=== PATIENT | male | born 1950 | race Caucasian/White ===

== ENCOUNTER 2016-12-29 08:45 | Outpatient (CLI) | payer OTHER ==
[2016-12-29 13:14] LABS: BASOPHILS % (AUTO) 0.5 %; EOSINOPHILS # (AUTO) 0.3 10^3/uL (0.0-0.7); HGB - HEMOGLOBIN 14.1 g/dL (14.0-18.0); LYMPHOCYTES # (AUTO) 1.2 10^3/uL (1.5-3.5); MONOCYTES # (AUTO) 0.8 10^3/uL (0.0-1.0)
[2016-12-29 13:37] LABS: ALBUMIN/GLOBULIN RATIO 1.3 (1.0-2.2); BILIRUBIN,TOTAL 0.8 mg/dL (0.2-1.0); BUN - BLOOD UREA NITROGEN 20 mg/dL (6-20); CALCIUM 9.3 mg/dL (8.5-10.3); CARBON DIOXIDE - CO2 30 mmol/L (21-32); CHLORIDE 100 mmol/L (101-111); CHOL/HDL RATIO 5.9 (<5.0); CHOLESTEROL 178 mg/dL; CREATININE 0.9 mg/dL (0.6-1.2); GFR - MDRD 84 (>89); GLUCOSE 201 mg/dL (70-100); HDL CHOLESTEROL 30 mg/dL; LDL/HDL RATIO 3.9 (<3.6); POTASSIUM 3.6 mmol/L (3.5-5.0); SODIUM 139 mmol/L (135-145); TOTAL PROTEIN 7.4 g/dL (6.7-8.2); TRIGLYCERIDES 151 mg/dL; VLDL CHOLESTEROL 30 mg/dL
[2016-12-29 14:16] LABS: EOSINOPHILS % (AUTO) 3.2 %; HCT - HEMATOCRIT 40.1 % (42.0-52.0); LYMPHOCYTES % (AUTO) 13.1 %; MEAN CORPUSCULAR HEMOGLOBIN 29.1 pg (27.0-31.0); MEAN CORPUSCULAR HGB CONC 35.2 g/dL (32.0-36.0); MEAN CORPUSCULAR VOLUME 82.7 fL (80.0-94.0); MEAN PLATELET VOLUME 8.9 fL (7.4-11.4); MONOCYTES % (AUTO) 8.8 %; NEUTROPHILS # (AUTO) 6.8 10^3/uL (1.5-6.6); NEUTROPHILS % (AUTO) 74.4 %; RED BLOOD COUNT 4.85 10^6/uL (4.70-6.10); RED CELL DISTRIBUTION WIDTH 13.6 % (12.0-15.0); UNCORRECTED WHITE BLOOD COUNT 9.1 x10^3/uL; WHITE BLOOD COUNT 9.1 x10^3/uL (4.8-10.8)
[2016-12-29 18:48] LABS: HEMOGLOBIN A1C 0.75 g/dL
[2016-12-29 19:57] LABS: BILIRUBIN,URINE NEGATIVE (NEGATIVE)
[2016-12-29 20:19] LABS: UR CULTURE IF IND INDICATED; WBC,URINE >25 /HPF (0-3)
== END 2016-12-29 08:46 | disposition home or self-care (01) ==
LOC: LAB.WCP 08:45
PROVIDERS: ATTEND Family Medicine
DX: E11.9 Type 2 diabetes mellitus without complications (principal); I10 Essential (primary) hypertension; E78.9 Disorder of lipoprotein metabolism, unspecified; R30.0 Dysuria; Z12.5 Encounter for screening for malignant neoplasm of prostate
CPT/HCPCS: 36415; 80053; 80061; 81001; 82043; 83036; 84153; 85025; 87077; 87086

== ENCOUNTER 2020-07-31 15:13 | Outpatient (CLI) | payer MEDICARE | END 2020-07-31 15:14 | disposition home or self-care (01) | LOC: COV 15:13 | PROVIDERS: ATTEND Family Medicine | DX: R05 Cough (principal); R53.83 Other fatigue; R09.81 Nasal congestion; Z20.828 Contact with and (suspected) exposure to other viral communicable diseases ==

== ENCOUNTER 2020-08-02 10:50 | Emergency (ER) | payer MEDICARE ==
--- NOTE | 2020-08-02 11:03 | ED Physician Documentation ---
PD HPI URI - Stated complaint Stated Complaint: HEAD PX/FATIGUE - History obtained from History obtained from: Patient PD PAST MEDICAL HISTORY - Present Medications Home Medications: Ambulatory Orders Medication Instructions Recorded Confirmed Amlodipine Besylate [Norvasc] 10 mg PO DAILY 02/08/17 02/08/17 Aspirin [Aspirin EC] 81 mg PO DAILY 02/08/17 02/08/17 Metformin HCl 850 mg PO BID 02/08/17 02/08/17 Tamsulosin [Flomax] 0.4 mg PO DAILY 02/08/17 02/08/17 hydroCHLOROthiazide 25 mg PO DAILY 02/08/17 02/08/17 [Hydrochlorothiazide] lisinopriL [Lisinopril] 10 mg PO BID 02/08/17 02/08/17
--- NOTE | 2020-08-02 11:31 | ED Physician Documentation ---
PD HPI HEADACHE - Stated complaint Stated Complaint: HEAD PX/FATIGUE - Chief complaint Chief Complaint: General - History obtained from History obtained from: Patient - History of Present Illness Timing - onset: How many weeks ago (2-3) Timing - onset during: Rest, Light activity Timing - duration: Weeks Timing - details: Gradual onset, Waxing and waning Worst headache ever?: No: Worst headache ever? Location: Global Quality: Throbbing, Aching. No: [place] Associated symptoms: No: Fever, Stiff neck, Nausea, Vomiting Recently seen: Not recently seen (He had the headache and feeling slightly na useous and so was concerned about Covid infection and had been outpatient Covid test a few days ago. The result was negative. No URI symptoms per se. He did start taking his blood pressure though several days ago and is noticed it to be consistently well o) Review of Systems Constitutional: denies: Fever, Chills Eyes: denies: Loss of vision, Decreased vision Nose: denies: Rhinorrhea / runny nose, Congestion Throat: denies: Sore throat Respiratory: denies: Cough GI: reports: Nausea. denies: Vomiting, Diarrhea Skin: denies: Rash, Lesions Musculoskeletal: denies: Neck pain, Back pain Neurologic: reports: Headache. denies: Generalized weakness, Focal weakness, Numbness, Near syncope, Confused, Altered mental status, Head injury PD PAST MEDICAL HISTORY - Past Medical History Cardiovascular: Hypertension (Had run out of medicines several months ago in had not gotten to refill them. Is prior provider Dr. Abad left and he is reassigned as a new patient so his appointment is not until August. He did have a refill available of his amlodipine but not his lisinopril. It is available at the pharmacy ) - Present Medications Home Medications: Ambulatory Orders Medication Instructions Recorded Confirmed Amlodipine Besylate [Norvasc] 10 mg PO DAILY 02/08/17 08/02/20 Metformin HCl 850 mg PO BID 02/08/17 08/02/20 lisinopriL [Lisinopril] 10 mg PO BID 02/08/17 08/02/20 HYDROcod/ACETAM 5/325 [[place] 5/325] 1 ea PO Q6H PRN #10 tablet 08/02/20 Lisinopril [Zestril] 10 mg PO BID #60 tablet 08/02/20 - Allergies Allergies/Adverse Reactions: Allergies Allergy/AdvReac Type Severity Reaction Status Date / Time No Known Drug Allergies Allergy Verified 08/02/20 11:58 PD ED PE NORMAL - Vitals Vital signs reviewed: Yes - General General: Alert and oriented X 3, Well developed/nourished, Other (seems uncomfortable due to headache. ) - HEENT HEENT: PERRL, EOMI, Moist mucous membranes, Pharynx benign - Neck Neck: Supple, no meningeal sign, No adenopathy - Cardiac Cardiac: RRR, No murmur - Respiratory Respiratory: Clear bilaterally - Derm Derm: Normal color, Warm and dry - Extremities Extremities: No tenderness to palpate, No edema, No calf tenderness / cord - Neuro Neuro: Alert and oriented X 3, credit administrator 2-12 intact, No motor deficit, No sensory deficit, Normal speech, Other Eye Opening: Spontaneous Motor: Obeys Commands Verbal: Oriented GCS Score: 15 Results - Vitals Vitals: Vital Signs - 24 hr 08/02/20 08/02/20 08/02/20 10:55 11:14 12:55 Temperature 36.5 C Heart Rate 66 75 58 L Respiratory 16 12 12 Rate Blood Pressure 222/88 H 230/102 H 199/89 H O2 Saturation 96 98 97 08/02/20 13:30 Temperature 36.2 C L Heart Rate 63 Respiratory 18 Rate Blood Pressure 189/84 H O2 Saturation 98 Oxygen O2 Source Room air - EKG (time done) 11:43 Rate: Rate (enter#) (63) Rhythm: NSR [place]: Normal Intervals: Normal MD QRS: Normal Ischemia: Normal ST segments. No: ST elevation c/w ischemia, ST depression Compare to prior EKG: Old EKG unavailable - Labs Labs: Laboratory Tests 08/02/20 08/02/20 11:40 11:40 WBC 8.2 RBC 5.64 Hgb 16.0 Hct 47.5 MCV 84.2 MCH 28.4 MCHC 33.7 RDW 12.6 Plt Count 216 MPV 10.3 Neut # (Auto) 6.5 Lymph # (Auto) 0.9 L [place] # (Auto) 0.6 Eos # (Auto) 0.1 Baso # (Auto) 0.1 Absolute Nucleated RBC 0.00 Nucleated RBC % 0.0 Sodium 138 Potassium 3.8 Chloride 101 Carbon Dioxide 26 Anion Gap 11.0 BUN 19 Creatinine 0.9 Estimated GFR (MDRD) 84 L Glucose 278 H Calcium 9.6 Magnesium 2.2 - Rads (name of study) head CT Radiology: Prelim report reviewed (normal. no edema.), See rad report PD MEDICAL DECISION MAKING - ED course Complexity details: re-evaluated patient (headache is improved with meds, and BP is lessening with PO meds, down to 189 at discharge. Normal neuro still. ), considered differential (Seems likely is having hypertensive symptoms with the headache and some mild nausea. We can check head CT to ensure no posterior leukoencephalopathy nor signs of edema or swelling. Can check EKG and creatinine to ensure no other heart or kidney endorgan dysfunction from the sustained hypertension.), d/w patient Departure - Departure Disposition: Home, Self Care Clinical Impression: Hypertension Qualifiers: Hypertension type: unspecified Qualified Code(s): I10 - Essential (primary) hypertension Headache Qualifiers: Headache type: unspecified Headache chronicity pattern: acute headache Intractability: not intractable Qualified Code(s): R51.9 - Headache, unspecified Condition: Stable Record reviewed to determine appropriate education?: Yes Instructions: ED Cephalgia Unspecified, ED Hypertension Conf Out Of Control Follow-Up: Carissa Salazar DO [Primary Care Provider] - Prescriptions: HYDROcod/ACETAM 5/325 [[place] 5/325] 1 ea PO Q6H PRN #10 tablet PRN Reason: Pain Lisinopril [Zestril] 10 mg PO BID #60 tablet Comments: There is no signs of acute organ injury of the brain heart or kidneys based on your testing today. The blood pressure was elevated and has been so by your measurements at home. Therefore it would be good for you to resume your prior blood pressure medicines, as you intend to do. You have a amlodipine at the pharmacy. I wrote for the lisinopril. You can add Tylenol or hydrocodone pain medicine if needed for headaches which may still persist for another day or 2 but should taper down. Stay well- hydrated and low-salt diet. Follow-up with your primary care as planned. I believe the headache is from the high blood pressure and should improve as your blood pressures more controlled. Recheck if persisting headache despite better blood pressure or if other symptoms develop. Discharge Date/Time: 08/02/20 13:46
[2020-08-02] MEDS ORDERED: KETOROLAC 30 MG/ML VIAL IVP STA (11:36)
[2020-08-02] MEDS ORDERED: ACETAMINOPHEN 325 MG TABLET PO STA (11:36)
[2020-08-02] MEDS ORDERED: lisinopriL 5 MG TABLET PO STA (11:37)
[2020-08-02 12:13] LABS: BASOPHILS # (AUTO) 0.1 10^3/uL (0.0-0.1); BASOPHILS % (AUTO) 0.6 %; EOSINOPHILS # (AUTO) 0.1 10^3/uL (0.0-0.7); EOSINOPHILS % (AUTO) 1.6 %; LYMPHOCYTES # (AUTO) 0.9 10^3/uL (1.5-3.5); LYMPHOCYTES % (AUTO) 10.7 %; MEAN CORPUSCULAR HEMOGLOBIN 28.4 pg (27.0-31.0); MEAN CORPUSCULAR HGB CONC 33.7 g/dL (32.0-36.0); MEAN CORPUSCULAR VOLUME 84.2 fL (80.0-94.0); MEAN PLATELET VOLUME 10.3 fL (7.4-11.4); MONOCYTES # (AUTO) 0.6 10^3/uL (0.0-1.0); MONOCYTES % (AUTO) 7.6 %; NEUTROPHILS # (AUTO) 6.5 10^3/uL (1.5-6.6); PLT - PLATELET COUNT 216 10^3/uL (130-450); RED BLOOD COUNT 5.64 10^6/uL (4.70-6.10); RED CELL DISTRIBUTION WIDTH 12.6 % (12.0-15.0); WHITE BLOOD COUNT 8.2 x10^3/uL (4.8-10.8)
[2020-08-02 12:25] LABS: CALCIUM 9.6 mg/dL (8.5-10.3); CREATININE 0.9 mg/dL (0.6-1.2); MAGNESIUM 2.2 mg/dL (1.7-2.8)
--- NOTE | 2020-08-02 12:39 | CT Report ---
PROCEDURE: HEAD WO INDICATIONS: Headache and HTN for 2-3 weeks TECHNIQUE: Noncontrast 4.5 mm thick angled axial sections acquired from the foramen magnum to the vertex. For r adiation dose reduction, the following was used: automated exposure control, adjustment of mA and/or kV according to patient size. COMPARISON: None. FINDINGS: Image quality: Excellent. CSF spaces: Basal cisterns are patent. No extra-axial fluid collections. Ventricles are normal in size and shape. Brain: No midline shift. No intracranial masses or hemorrhage. Gauthier-white matter interface is norm al. Skull and face: Calvarium and visualized facial bones are intact, without suspicious lesions. Sinuses: Visualized sinuses and mastoids are clear. IMPRESSION: No acute intracranial finding. Reviewed by: Brayden Short MD on 08/02/2020 11:38 AM [facility] Approved by: Brayden Short MD on 08/02/2020 11:38 AM [facility] Station ID: [id number]
[2020-08-02 13:46] VITALS: BP 189/84
== END 2020-08-02 13:46 | disposition home or self-care (01) ==
LOC: ED 10:50
DX: I10 Essential (primary) hypertension (principal); T46.4X6A Underdosing of angiotensin-converting-enzyme inhibitors, initial encounter; Z91.138 Patient's unintentional underdosing of medication regimen for other reason; R51.9 Headache, unspecified; R11.0 Nausea
CPT/HCPCS: 36415; 70450; 80048; 83735; 85025; 93005; 96374; 99284; A9270

== ENCOUNTER 2020-08-05 10:54 | Outpatient (CLI) | payer MEDICARE ==
[2020-08-05 18:14] LABS: BASOPHILS # (AUTO) 0.1 10^3/uL (0.0-0.1); BASOPHILS % (AUTO) 0.6 %; EOSINOPHILS # (AUTO) 0.3 10^3/uL (0.0-0.7); EOSINOPHILS % (AUTO) 2.5 %; HGB - HEMOGLOBIN 16.3 g/dL (14.0-18.0); LYMPHOCYTES % (AUTO) 9.4 %; MEAN CORPUSCULAR HEMOGLOBIN 29.4 pg (27.0-31.0); MEAN CORPUSCULAR HGB CONC 34.2 g/dL (32.0-36.0); MEAN CORPUSCULAR VOLUME 85.8 fL (80.0-94.0); MEAN PLATELET VOLUME 10.7 fL (7.4-11.4); MONOCYTES # (AUTO) 0.8 10^3/uL (0.0-1.0); MONOCYTES % (AUTO) 7.5 %; NEUTROPHILS # (AUTO) 8.5 10^3/uL (1.5-6.6); NEUTROPHILS % (AUTO) 79.7 %; PLT - PLATELET COUNT 235 10^3/uL (130-450); RED BLOOD COUNT 5.55 10^6/uL (4.70-6.10); RED CELL DISTRIBUTION WIDTH 12.5 % (12.0-15.0); WHITE BLOOD COUNT 10.6 x10^3/uL (4.8-10.8)
[2020-08-05 19:04] LABS: ALBUMIN 4.5 g/dL (3.2-5.5); ALBUMIN/GLOBULIN RATIO 1.3 (1.0-2.2); ALKALINE PHOSPHATASE 62 IU/L (42-121); ALT ALANINE AMINOTRANSFERASE 22 IU/L (10-60); AST ASPARTATE AMINOTRANSFERASE 16 IU/L (10-42); BILIRUBIN,TOTAL 0.8 mg/dL (0.2-1.0); BUN - BLOOD UREA NITROGEN 19 mg/dL (6-20); CALCIUM 9.6 mg/dL (8.5-10.3); CARBON DIOXIDE - CO2 26 mmol/L (21-32); CHLORIDE 100 mmol/L (101-111); CHOL/HDL RATIO 7.1 (<5.0); CHOLESTEROL 198 mg/dL; CREATININE 0.9 mg/dL (0.6-1.2); GLUCOSE 231 mg/dL (70-100); HDL CHOLESTEROL 28 mg/dL; LDL CHOLESTEROL,CALCULATED 129 mg/dL; LDL/HDL RATIO 4.6 (<3.6); SODIUM 136 mmol/L (135-145); VLDL CHOLESTEROL 41 mg/dL
[2020-08-05 19:18] LABS: CREATININE,URINE 91.3 mg/dL; MICROALBUM/CREATININE RATIO,UR 108.4 ug/mg (<30.0); MICROALBUMIN,URINE 9.9 mg/dL (0-300.0)
[2020-08-05 22:30] LABS: HEMOGLOBIN A1c% 7.4 % (4.27-6.07)
== END 2020-08-05 10:55 | disposition home or self-care (01) ==
LOC: LAB.N 10:54
PROVIDERS: ATTEND Family Medicine
DX: R74.8 Abnormal levels of other serum enzymes (principal); E11.9 Type 2 diabetes mellitus without complications; N40.1 Benign prostatic hyperplasia with lower urinary tract symptoms; N13.8 Other obstructive and reflux uropathy
CPT/HCPCS: 36415; 80053; 80061; 82043; 82570; 83036; 83721; 84153; 85025

== ENCOUNTER 2020-09-02 16:31 | Outpatient (CLI) | payer MEDICARE ==
[2020-09-02 18:42] LABS: CALCIUM 9.5 mg/dL (8.5-10.3); CREATININE 0.8 mg/dL (0.6-1.2)
== END 2020-09-02 23:59 ==
LOC: LAB.WCP 16:31
PROVIDERS: ATTEND Family Medicine
DX: I10 Essential (primary) hypertension (principal)
CPT/HCPCS: 36415; 80048

== ENCOUNTER 2020-10-13 19:35 | Inpatient (IN) | payer MEDICARE ==
[2020-10-13 19:51] LABS: BASOPHILS # (AUTO) 0.1 10^3/uL (0.0-0.1); BASOPHILS % (AUTO) 0.7 %; EOSINOPHILS # (AUTO) 0.2 10^3/uL (0.0-0.7); EOSINOPHILS % (AUTO) 2.6 %; HCT - HEMATOCRIT 43.6 % (42.0-52.0); HGB - HEMOGLOBIN 15.4 g/dL (14.0-18.0); LYMPHOCYTES # (AUTO) 1.3 10^3/uL (1.5-3.5); MEAN CORPUSCULAR HEMOGLOBIN 28.7 pg (27.0-31.0); MEAN CORPUSCULAR HGB CONC 35.3 g/dL (32.0-36.0); MEAN CORPUSCULAR VOLUME 81.2 fL (80.0-94.0); MEAN PLATELET VOLUME 10.5 fL (7.4-11.4); MONOCYTES # (AUTO) 0.8 10^3/uL (0.0-1.0); MONOCYTES % (AUTO) 8.6 %; NEUTROPHILS # (AUTO) 6.3 10^3/uL (1.5-6.6); NEUTROPHILS % (AUTO) 72.5 %; PLT - PLATELET COUNT 242 10^3/uL (130-450); RED BLOOD COUNT 5.37 10^6/uL (4.70-6.10); RED CELL DISTRIBUTION WIDTH 13.1 % (12.0-15.0); WHITE BLOOD COUNT 8.7 x10^3/uL (4.8-10.8)
--- NOTE | 2020-10-13 19:58 | ED Physician Documentation ---
PD HPI FOCAL NEURO - Stated complaint Stated Complaint: SLURRED SPEECH - Chief complaint Chief Complaint: Neuro - History obtained from History obtained from: Patient - History of Present Illness Timing - onset: Today Timing - duration: Hours (4.5) Timing - details: Gradual onset Severity of deficit: Mild Weakness: Arm, Leg, Right, Left Numbness: No: Face, Arm, Hand, Leg, Foot, Right, Left Associated symptoms: No: Headache, Nausea / vomiting, Seizure, Syncope, Fall, Head injury, Chest pain, Neck pain, Back pain, Fever Baseline status: positive: A&OX3, ambulatory, indep - Additional information Additional information: Patient is a 70-year-old male who states that he ate dinner around 330 tonight. He states he started drinking around that time as well. Went to watch a movie. When he was done with the movie he noticed that his legs felt heavy and he felt like he was having a hard time walking. He did not notice any localizing signs. He states his speech feels slurred as well. Has a history of hypertension and diabetes. States that he is on Metformin but does not take insulin. No history of stroke in the past. No recent trauma or surgery. He is not on blood thinne rs. Review of Systems Ten Systems: 10 systems reviewed and negative Constitutional: denies: Fever, Chills Eyes: denies: Decreased vision, Photophobia Ears: denies: Ear pain Nose: denies: Rhinorrhea / runny nose, Congestion Throat: denies: Sore throat Cardiac: denies: Chest pain / pressure Respiratory: denies: Dyspnea, Cough, Wheezing GI: denies: Abdominal Pain, Nausea, Vomiting, Diarrhea Skin: denies: Rash Musculoskeletal: denies: Neck pain, Back pain Neurologic: reports: Generalized weakness. denies: Focal weakness, Numbness, Syncope, Seizure, Confused, Altered mental status, Headache, Head injury, LOC PD PAST MEDICAL HISTORY - Past Medical History Cardiovascular: Hypertension (Had run out of medicines several months ago in had not gotten to refill them. Is prior provider Dr. Abad left and he is reass igned as a new patient so his appointment is not until August. He did have a refill available of his amlodipine but not his lisinopril. It is available at the pharmacy ) Neuro: Headaches Endocrine/Autoimmune: Type 2 diabetes - Past Surgical History Past Surgical History: Yes Derm: Skin cancer surgery - Present Medications Home Medications: Ambulatory Orders Medication Instructions Recorded Confirmed Amlodipine Besylate [Norvasc] 10 mg PO DAILY 02/08/17 08/02/20 Metformin HCl 850 mg PO BID 02/08/17 08/02/20 lisinopriL [Lisinopril] 10 mg PO BID 02/08/17 08/02/20 - Allergies Allergies/Adverse Reactions: Allergies Allergy/AdvReac Type Severity Reaction Status Date / Time No Known Drug Allergies Allergy Verified 10/13/20 19:47 - Social History Does the pt smoke?: No Smoking Status: Never smoker Does the pt drink ETOH?: No Does the pt have substance abuse?: No - Immunizations Immunizations are current?: No - POLST Patient has POLST: No PD ED PE NORMAL - Vitals Vital signs reviewed: Yes - General General: Alert and oriented X 3, No acute distress, Well developed/nourished - HEENT HEENT: PERRL, EOMI, Moist mucous membranes - Neck Neck: Supple, no meningeal sign - Cardiac Cardiac: RRR, No murmur, Strong equal pulses - Respiratory Respiratory: No respiratory distress, Clear bilaterally - Abdomen Abdomen: Soft, Non tender, Non distended - Derm Derm: Warm and dry, No rash - Extremities Extremities: No edema, No calf tenderness / cord - Neuro Neuro: Alert and oriented X 3, data analyst report writer 2-12 intact, No motor deficit, No sensory deficit, Normal speech Eye Opening: Spontaneous Motor: Obeys Commands Verbal: Oriented GCS Score: 15 - Psych Psych: Normal mood, Normal affect NIHSS - Time Time: 19:50 - Level of Consciousness Level of consciousness: (0) Alert, Keenly responsive LOC Questions: (0) Answers both Q's correct LOC Commands: (0) Performs both correctly - Gaze Best Gaze: (0) Normal - Visual Visual: (0) No loss - Facial Palsy Facial Palsy: (0) Normal, symmetrical movement - Motor Arms (both separate) Motor Arm (right): (0) No drift Motor Arm (left): (0) No drift - Motor Legs (both separate) Motor Leg (right): (0) No drift Motor Leg (left): (0) No drift - Limb Ataxia Limb Ataxia: (0) Absent - Sensory Sensory: (0) Normal - Best Language Best Language: (0) No aphasia - Dysarthria Dysarthria: (0) Normal - Extinction and Inattention (formally neg Extinction and inattention: (0) No abnormality - Total Score/Results Total Score/Result: 0 Results - Vitals Vitals: Vital Signs - 24 hr 10/13/20 10/13/20 10/13/20 19:39 20:12 20:42 Temperature 37.1 C 37.1 C 37.1 C Heart Rate 86 69 68 Respiratory 22 16 15 Rate Blood Pressure 204/79 H 150/68 H 150/68 H O2 Saturation 100 98 99 Oxygen O2 Source Room air - Labs Labs: Laboratory Tests 10/13/20 10/13/20 10/13/20 19:46 19:46 19:46 WBC 8.7 RBC 5.37 Hgb 15.4 Hct 43.6 MCV 81.2 MCH 28.7 MCHC 35.3 RDW 13.1 Plt Count 242 MPV 10.5 Neut # (Auto) 6.3 Lymph # (Auto) 1.3 L [place] # (Auto) 0.8 Eos # (Auto) 0.2 Baso # (Auto) 0.1 Absolute Nucleated RBC 0.00 Nucleated RBC % 0.0 PT INR APTT Sodium 138 Potassium 3.4 L Chloride 98 L Carbon Dioxide 25 Anion Gap 15.0 H BUN 14 Creatinine 0.9 Estimated GFR (MDRD) 83 L Glucose 308 H POC Whole Bld Glucose Estimat Average Glucose Hemoglobin A1c % Calcium 9.8 Total Bilirubin 0.8 AST 17 ALT 23 Alkaline Phosphatase 66 Total Protein 8.0 Albumin 4.6 Globulin 3.4 Albumin/Globulin Ratio 1.4 Lipase 47 TSH 2.85 Salicylates < 6.0 Acetaminophen < 10 L Ethyl Alcohol 43.4 10/13/20 10/13/20 10/13/20 19:46 19:46 19:50 WBC RBC Hgb Hct MCV MCH MCHC RDW Plt Count MPV Neut # (Auto) Lymph # (Auto) [place] # (Auto) Eos # (Auto) Baso # (Auto) Absolute Nucleated RBC Nucleated RBC % PT 12.1 INR 1.1 APTT 24.7 L Sodium Potassium Chloride Carbon Dioxide Anion Gap BUN Creatinine Estimated GFR (MDRD) Glucose POC Whole Bld Glucose 308 H Estimat Average Glucose 186 H Hemoglobin A1c % 8.1 H Calcium Total Bilirubin AST ALT Alkaline Phosphatase Total Protein Albumin Globulin Albumin/Globulin Ratio Lipase TSH Salicylates Acetaminophen Ethyl Alcohol PD MEDICAL DECISION MAKING - ED course Complexity details: reviewed results, re-evaluated patient (normal speech upon repeat evaluation. minimal L arm and leg weakness compared to R), considered differential, d/w patient, d/w construction consultant ED course: Slurred speech resolved upon arrival to the emergency department. Mostly has generalized weakness, but perhaps slightly more weakness on the left arm and left leg. Patient is significantly hypertensive. Last known normal was not with the 4-1/2 hours upon arrival to the emergency department. Symptoms are also improving. Therefore not a TPA candidate. Given labetalol for blood pressure. We will place the patient in observation for further strokelike symptom evaluation. Discussed the case with Dr. Zaidi, hospitalist who accepts No acute findings on head CT or CT angiogram of the head and neck. CT head IMPRESSION: No acute intracranial abnormality. CTA head IMPRESSION: No large vessel occlusion. No critical stenosis seen. CTA neck IMPRESSION: No large vessel occlusion. No dissection. Less than 50% stenosis in the bila teral ICA. Emphysematous change at the lung apices. - TPA CVA checklist Inclusion crititeria: positive: CT no bleed. negative: Sig neuro deficit, Onset know < 4.5 hr Relative contraindications: positive: Too mild Departure - Departure Disposition: ED Place in Observation Clinical Impression: Stroke-like symptoms Hypertension Qualifiers: Hypertension type: unspecified Qualified Code(s): I10 - Essential (primary) hypertension Condition: Stable
[2020-10-13 20:02] LABS: INR 1.1 (0.8-1.2); PT - PROTHROMBIN TIME 12.1 secs (9.9-12.6)
[2020-10-13 20:09] LABS: ACETAMINOPHEN < 10 ug/mL (10-30); ALBUMIN 4.6 g/dL (3.2-5.5); ALBUMIN/GLOBULIN RATIO 1.4 (1.0-2.2); ALKALINE PHOSPHATASE 66 IU/L (42-121); ALT ALANINE AMINOTRANSFERASE 23 IU/L (10-60); AST ASPARTATE AMINOTRANSFERASE 17 IU/L (10-42); BILIRUBIN,TOTAL 0.8 mg/dL (0.2-1.0); BUN - BLOOD UREA NITROGEN 14 mg/dL (6-20); CALCIUM 9.8 mg/dL (8.5-10.3); CARBON DIOXIDE - CO2 25 mmol/L (21-32); CHLORIDE 98 mmol/L (101-111); CREATININE 0.9 mg/dL (0.6-1.2); ETOH - ETHANOL 43.4 mg/dL; GFR - MDRD 83 (>89); GLUCOSE 308 mg/dL (70-100); LIPASE 47 U/L (22-51); POTASSIUM 3.4 mmol/L (3.5-5.0); SALICYLATE < 6.0 mg/dL; SODIUM 138 mmol/L (135-145)
[2020-10-13 20:10] LABS: PARTIAL THROMBOPLASTIN TIME 24.7 secs (24.9-33.3)
--- NOTE | 2020-10-13 20:26 | CT Report ---
PROCEDURE: Head W/O Stroke Protocol INDICATIONS: slurred speech, generalized weakness. TECHNIQUE: Noncontrast 4.5 mm thick angled axial sections acquired from the foramen magnum to the vertex, with c oronal reformats. For radiation dose reduction, the following was used: automated exposure control, adjustment of mA and/or kV according to patient size. COMPARISON: FINDINGS: Image quality: Excellent. CSF spaces: Basal cisterns are patent. No extra-axial fluid collections. Ventricles are normal in size and shape. Brain: No midline shift. No intracranial masses or hemorrhage. No large area of hypodensity in a va scular diffusion to suggest infarction. Periventricular hypodensity consistent with chronic microvasc ular ischemic disease. Skull and face: Calvarium and visualized facial bones are intact, without suspicious lesions. Sinuses: Visualized sinuses and mastoids are clear. IMPRESSION: No acute intracranial abnormality. This study fulfills neurological imaging criteria for inclusion or exclusion of acute stroke therapie s based on available published neurological imaging guidelines. Results were communicated to Dr. Markham at 10/13/2020 8:24 PM PST. Reviewed by: Zen Lawrence MD on 10/13/2020 8:25 PM PST Approved by: Zen Lawrence MD on 10/13/2020 8:25 PM PST Station ID: [id number]
--- NOTE | 2020-10-13 20:31 | CT Report ---
PROCEDURE: ANGIO HEAD W/WO INDICATIONS: slurred speech CONTRAST: IV CONTRAST: Optiray 320 ml: 100 PO CONTRAST: *NO PO CONTRAST TECHNIQUE: Precontrast 4.5 mm thick angled axial sections acquired from the foramen magnum to the vertex. Afte r the administration of intravenous contrast, 1 mm thick sections acquired through the [place] of [place] is. Postcontrast 4.5 mm thick sections then re-acquired from the foramen magnum to the vertex. 3-di mensional naythuh-cexlylatl-riymgadxhi (MIP) and/or volume rendering reformats were acquired of the c entral intracranial vasculature. For radiation dose reduction, the following was used: automated ex posure control, adjustment of mA and/or kV according to patient size. COMPARISON: Same day noncontrast head CT, 08/02/2020. FINDINGS: Image quality: Excellent. Anterior circulation: Intracranial internal carotid arteries are normal in size and flow. The flow within the paired anterior cerebral arteries is normal and symmetric. The flow within the middle cer ebral arteries is normal and symmetric. The anterior communicating artery is seen. No aneurysms are seen. Posterior circulation: Visualized portions of the vertebral arteries demonstrate normal caliber, and join to form a normal appearing basilar artery. Flow within the posterior cerebral arteries is norm al and symmetric. No aneurysms are seen. CSF spaces: Ventricles are normal in size and shape. Basal cisterns are patent. No extra-axial flu id collections. Brain: No midline shift. No intracranial bleeds or masses. Gauthier-white matter interface appears int act. Skull and face: Calvarium and facial bones appear intact, without suspicious lesions. Sinuses: Visualized sinuses and mastoids are clear. IMPRESSION: No large vessel occlusion. No critical stenosis seen. Results were communicated to Dr. Mauricio at 10/13/2020 8:29 PM PST. Reviewed by: Zen Lawrence MD on 10/13/2020 8:30 PM PST Approved by: Zen Lawrence MD on 10/13/2020 8:30 PM PST Station ID: [id number]
--- NOTE | 2020-10-13 20:35 | CT Report ---
PROCEDURE: ANGIO NECK W INDICATIONS: slurred speech CONTRAST: IV CONTRAST: Optiray 320 ml: 100 PO CONTRAST: *NO PO CONTRAST TECHNIQUE: After the administration of intravenous contrast, 1.5 mm axial sections acquired from the aortic arch to the [place] of [place]. Coronal 3-D maximum intensity projection (MIP) and/or volume rendering ref ormats were then performed. For radiation dose reduction, the following was used: automated exposur e control, adjustment of mA and/or kV according to patient size. COMPARISON: Same day CTA head. FINDINGS: Image quality: Excellent. Carotid system: The great vessels demonstrate a conventional anatomy as they arise from the aortic a rch. The origins of the common carotid arteries appear patent. The common carotid arteries demonstr ate normal calibers and courses. The bifurcation regions appear normal bilaterally. The internal ca rotid arteries demonstrate normal caliber and course. Less than 50% stenosis in the bilateral ICA. No calcified plaque at the carotid bulbs. Posterior circulation: The origins of the vertebral arteries appear patent. The more superior porti ons of the vertebral arteries demonstrate normal course and caliber. They join to form a normal appe aring basilar artery. Soft tissues: Visualized neck soft tissues demonstrate no suspicious abnormalities. Emphysematous c hange. The thyroid gland is normal in size. Bones: No suspicious bony lesions. Moderate degenerative change in the cervical spine. Visualized ce rvical spine appears normally aligned. IMPRESSION: No large vessel occlusion. No dissection. Less than 50% stenosis in the bilateral ICA. Emphysematous change at the lung apices. The estimate of stenosis included in the report of the imaging study was calculated using the NASCET method Reviewed by: Zen Lawrence MD on 10/13/2020 8:34 PM PST Approved by: Zen Lawrence MD on 10/13/2020 8:34 PM PST Station ID: [id number]
[2020-10-13] MEDS ORDERED: LABETALOL 20 MG/4 ML SYRINGE IVP STA (20:36)
[2020-10-13] MEDS ORDERED: IOVERSOL 320 100 ML VIAL IVP ONE ×2 (20:37→20:48)
[2020-10-13] MEDS ORDERED: ACETAMINOPHEN 325 MG TABLET PO PRN (20:45)
[2020-10-13] MEDS ORDERED: SODIUM CHLORIDE FLUSH 0.9% 10 ML SYRINGE IVP PRN (20:45)
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
[2020-10-13 21:08] LABS: ESTIMATED AVERAGE GLUCOSE 186 mg/dL (70-100); HEMOGLOBIN A1c% 8.1 % (4.27-6.07)
[2020-10-13 21:10] LABS: MUDS CUTOFF CONCENTRATIONS CUTOFF CONC BELOW:
[2020-10-13 21:19] LABS: BILIRUBIN,URINE NEGATIVE (NEGATIVE); GLUCOSE, URINE (UA) 500 mg/dL (NEGATIVE); KETONES,URINE (UA) 15 mg/dL (NEGATIVE); LEUKOCYTE ESTERASE, URINE NEGATIVE (NEGATIVE); NITRITE,URINE NEGATIVE (NEGATIVE); OCCULT BLOOD,URINE NEGATIVE (NEGATIVE); PH,URINE 5.5 PH (5.0-7.5); PROTEIN,URINE NEGATIVE (NEGATIVE); UROBILINOGEN,URINE 1 (NORMAL) E.U./dL (NORMAL)
[2020-10-13 21:20] LABS: CLARITY,URINE CLEAR (CLEAR)
[2020-10-13] MEDS ORDERED: ASPIRIN CHEW 81 MG TABLET PO STA (21:22)
[2020-10-13 21:23] LABS: AMPHETAMINE SCREEN,URINE NEGATIVE (NEGATIVE); BARBITURATE SCREEN,UR NEGATIVE (NEGATIVE); BENZODIAZEPINES SCREEN, URINE NEGATIVE (NEGATIVE); COCAINE SCREEN URINE NEGATIVE (NEGATIVE); METHADONE SCREEN, URINE NEGATIVE (NEGATIVE); METHAMPHETAMINES SCREEN, URINE NEGATIVE (NEGATIVE); OPIATE SCREEN, URINE NEGATIVE (NEGATIVE); OXYCODONE SCREEN, URINE NEGATIVE (NEGATIVE); PROPOXYPHENE SCREEN, URINE NEGATIVE (NEGATIVE); THC CANNABINOID SCREEN, URINE NEGATIVE (NEGATIVE); TRICYCLIC ANTIDEPRESSANT,URINE NEGATIVE (NEGATIVE)
[2020-10-13] MEDS ORDERED: ASPIRIN 325 MG TABLET PO STA (22:00)
[2020-10-13] MEDS ORDERED: hydrALAZINE INJ 20 MG/ML VIAL IVP PRN (22:01)
[2020-10-13 22:11] LABS: B. PARAPERTUSSIS- RESP PCR PAN NOT DETECTED; B. PERTUSSIS- RESP PCR PANEL NOT DETECTED; C. PNEUMONIAE- RESP PCR PANEL NOT DETECTED; CORONAVIRUS 229E-RESP PCR NOT DETECTED; CORONAVIRUS HKU1-RESP PCR NOT DETECTED; CORONAVIRUS NL63-RESP PCR NOT DETECTED; CORONAVIRUS OC43-RESP PCR NOT DETECTED; HUMAN METAPNEUMOVIRUS NOT DETECTED; INFLUENZA A- RESP PCR PANEL NOT DETECTED; INFLUENZA B - RESP PCR PANEL NOT DETECTED; M. PNEUMONIAE- RESP PCR PANEL NOT DETECTED; PARAINFLUENZA VIRUS 1 NOT DETECTED; PARAINFLUENZA VIRUS 2 NOT DETECTED; PARAINFLUENZA VIRUS 3 NOT DETECTED; PARAINFLUENZA VIRUS 4 NOT DETECTED; RHINOVIRUS/ENTEROVIRUS NOT DETECTED; RSV- RESP PCR PANEL NOT DETECTED; SARS-CoV-2 -RESP PCR PANEL NOT DETECTED
[2020-10-14] MEDS: SODIUM CHLORIDE FLUSH 0.9% 10 ML SYRINGE IVP SCH ×3 (01:48→16:35)
[2020-10-14 05:04] LABS: BASOPHILS % (AUTO) 0.5 %; EOSINOPHILS # (AUTO) 0.2 10^3/uL (0.0-0.7); EOSINOPHILS % (AUTO) 2.8 %; HCT - HEMATOCRIT 37.6 % (42.0-52.0); LYMPHOCYTES # (AUTO) 1.4 10^3/uL (1.5-3.5); LYMPHOCYTES % (AUTO) 17.9 %; MEAN CORPUSCULAR HEMOGLOBIN 28.6 pg (27.0-31.0); MEAN CORPUSCULAR HGB CONC 34.6 g/dL (32.0-36.0); MEAN CORPUSCULAR VOLUME 82.8 fL (80.0-94.0); MEAN PLATELET VOLUME 10.4 fL (7.4-11.4); MONOCYTES # (AUTO) 0.7 10^3/uL (0.0-1.0); MONOCYTES % (AUTO) 9.1 %; NEUTROPHILS # (AUTO) 5.4 10^3/uL (1.5-6.6); NEUTROPHILS % (AUTO) 69.2 %; PLT - PLATELET COUNT 193 10^3/uL (130-450); RED BLOOD COUNT 4.54 10^6/uL (4.70-6.10); WHITE BLOOD COUNT 7.8 x10^3/uL (4.8-10.8)
[2020-10-14 05:22] LABS: BUN - BLOOD UREA NITROGEN 14 mg/dL (6-20); CALCIUM 8.7 mg/dL (8.5-10.3); CARBON DIOXIDE - CO2 26 mmol/L (21-32); CHLORIDE 99 mmol/L (101-111); CHOL/HDL RATIO 3.9 (<5.0); CHOLESTEROL 114 mg/dL; CREATININE 0.8 mg/dL (0.6-1.2); GFR - MDRD 96 (>89); GLUCOSE 241 mg/dL (70-100); HDL CHOLESTEROL 29 mg/dL; LDL CHOLESTEROL,CALCULATED 69 mg/dL; LDL/HDL RATIO 2.4 (<3.6); POTASSIUM 3.3 mmol/L (3.5-5.0); SODIUM 135 mmol/L (135-145); TRIGLYCERIDES 79 mg/dL; VLDL CHOLESTEROL 16 mg/dL
[2020-10-14] MEDS: PANTOPRAZOLE 40 MG TABLET PO SCH (06:24)
[2020-10-14] MEDS ORDERED: INSULIN ASPART 300 UNIT/3 ML PEN SUBQ SCH (08:00)
[2020-10-14] MEDS: ASPIRIN EC 81 MG TABLET PO SCH (08:04)
[2020-10-14] MEDS ORDERED: POTASSIUM CHLORIDE 20 MEQ TABLET PO ONE (08:24)
--- NOTE | 2020-10-14 09:31 | PHARMACY PROGRESS NOTE ---
- Best Possible Medication History Admit Date and Time: 10/13/202044 Processed by: Pharmacy Medication History completed: Yes Secondary Source(s): Physician records, Insurance records As the person ultimately responsible for medication therapy, providers are able to order a medication from an existing home medication list in [facility] via the "Reconcile Routine" prior to Confirmation of that medication by cryptologic support specialist. Such practice is discouraged except when the physician, in their clinical judgment, deems that a medical need exists for a medication without regard to previous use.
[2020-10-14] MEDS: INSULIN GLARGINE 300 UNIT/3 ML PEN SUBQ SCH (09:33)
[2020-10-14] MEDS: INSULIN ASPART 300 UNIT/3 ML PEN SUBQ SCH ×3 (12:07→21:34)
--- NOTE | 2020-10-14 14:02 | PROVIDER PROGRESS NOTE ---
Assessment/Plan - Problem List (1) Stroke-like symptoms Assessment/Plan: Patient speech is improved without slurred speech now. pt report he feel better and stronger on today. Patient still present left upper and lower extremity weakness. PT and OT evaluated and treated the patient, Recommended patient is not dischargeable at this point, Patient still present unsteady gait as well. pt is inpt status now. MRI of brain and echo are pending. Continue aspirin, statin medication Continue PT and OT Continue let blood pressure rise for 24 hours continue tight diabetes control. (2) Diabetes mellitus pt's glucose elevated, not well controlled. pt report he did not insulin at [facility]. Patient's hemoglobin A1c is 8.1. add Lantus and increase Slide scale level with Accu-Cheks before every meal and at bedtime, Hypoglycemia as per protocol (3) Hyperlipidemia Conclusion/Plan: Atorvastatin 80 mg p.o. nightly ordered. Lipid panel in the morning. (4) Hypertension Will allow permissive hypertension for 24 hours. We will treat with hydralazine as needed for systolic greater than 180. will resume Patient home BP meds on lisinopril and amlodipine 10mg daily pt report he is not alcoholism, just social drinker without any withdrawal symptoms - Current Meds Current Meds: Current Medications Generic Name Dose Route Start Last Admin Trade Name Freq PRN Reason Stop Dose Admin Acetaminophen 650 mg 10/13/20 20:45 10/14/20 01:53 Acetaminophen 325 Mg Tablet PO 650 mg Q4HR PRN Administration Pain 1 to 4 Aspirin 81 mg 10/14/20 09:00 10/14/20 08:04 Aspirin Ec 81 Mg Tablet PO 81 mg DAILY MADIE Administration Insulin Aspart 2 - 10 unit 10/14/20 12:00 10/14/20 12:07 Insulin Aspart 300 Unit/3 Ml Pen SUBQ 8 unit 0800,1200,1700,2100 MADIE Administration Protocol Insulin Glargine 5 unit 10/14/20 09:00 10/14/20 09:33 Insulin Glargine 300 Unit/3 Ml Pen SUBQ 5 unit QDBREAKFAST MADIE Administration Pantoprazole Sodium 40 mg 10/14/20 07:00 10/14/20 06:24 Pantoprazole 40 Mg Tablet PO Not Given QDAC MADIE Sodium Chloride 10 ml 10/14/20 01:00 10/14/20 08:05 Sodium Chloride Flush 0.9% 10 Ml Syringe IVP 10 ml 0100,0900,1700 MADIE Administration - Lab Result Fish Bone Diagrams: 10/14/20 04:56 10/14/20 04:56 - Additional Planning My Orders: My Active Orders 10/14/20 Evaluate and Treat OT [OT] Routine Evaluate and Treat PT [PT] Routine 10/14/20 09:00 Insulin Glargine [Lantus Solostar] 5 unit SUBQ QDBREAKFAST 10/14/20 12:00 Insulin Aspart [NovoLOG] 2 - 10 unit SUBQ 0800,1200,1700,2100 10/14/20 21:00 Metoprolol Succinate [Toprol Xl] 25 mg PO QPM Subjective - Subjective Patient Reports: Feeling Better Objective Vital Signs: Vital Signs - 24 hr 10/13/20 10/13/20 10/13/20 19:39 20:12 20:42 Temperature 37.1 C 37.1 C 37.1 C Heart Rate 86 69 68 Heart Rate [ Brachial] Heart Rate [ Sitting] Heart Rate [ Supine] Respiratory 22 16 15 Rate Blood Pressure 204/79 H 150/68 H 150/68 H Blood Pressure [Left Brachial artery] Blood Pressure [Right Brachial artery] Blood Pressure [Sitting] Blood Pressure [Supine] O2 Saturation 100 98 99 O2 Saturation [ Sitting] O2 Saturation [ Supine] 10/13/20 10/13/20 10/13/20 20:45 20:47 20:51 Temperature 37.1 C Heart Rate 69 75 70 Heart Rate [ Brachial] Heart Rate [ Sitting] Heart Rate [ Supine] Respiratory 15 18 20 Rate Blood Pressure 150/68 H 160/77 H 160/77 H Blood Pressure [Left Brachial artery] Blood Pressure [Right Brachial artery] Blood Pressure [Sitting] Blood Pressure [Supine] O2 Saturation 99 98 98 O2 Saturation [ Sitting] O2 Saturation [ Supine] 10/13/20 10/13/20 10/14/20 21:00 21:50 01:38 Temperature 36.9 C 36.5 C Heart Rate 69 Heart Rate [ 65 62 Brachial] Heart Rate [ Sitting] Heart Rate [ Supine] Respiratory 18 18 17 Rate Blood Pressure 160/77 H Blood Pressure 169/65 H [Left Brachial artery] Blood Pressure 179/73 H [Right Brachial artery] Blood Pressure [Sitting] Blood Pressure [Supine] O2 Saturation 99 97 98 O2 Saturation [ Sitting] O2 Saturation [ Supine] 10/14/20 10/14/20 10/14/20 01:50 05:00 07:47 Temperature 36.5 C 37.0 C Heart Rate Heart Rate [ 60 67 Brachial] Heart Rate [ Sitting] Heart Rate [ Supine] Respiratory 17 18 Rate Blood Pressure Blood Pressure [Left Brachial artery] Blood Pressure 137/57 H 154/72 H 149/53 H [Right Brachial artery] Blood Pressure [Sitting] Blood Pressure [Supine] O2 Saturation 98 97 O2 Saturation [ Sitting] O2 Saturation [ Supine] 10/14/20 10/14/20 11:03 11:08 Temperature 36.7 C Heart Rate Heart Rate [ 68 Brachial] Heart Rate [ 71 Sitting] Heart Rate [ 70 Supine] Respiratory 18 Rate Blood Pressure Blood Pressure [Left Brachial artery] Blood Pressure 163/67 H [Right Brachial artery] Blood Pressure 185/84 H [Sitting] Blood Pressure 176/80 H [Supine] O2 Saturation 97 O2 Saturation [ 98 Sitting] O2 Saturation [ 98 Supine] Oxygen O2 Source Room air I&O (Last 24 Hrs): Intake and Output Totals x24h 10/12/20 10/13/20 10/14/20 23:59 23:59 23:59 Intake Total 1700 Output Total 2265 Balance -565 General: Alert, Oriented x3, Cooperative, No acute distress HEENT: Atraumatic, PERRLA Neck: Supple Lymphatic: no adenopathy Neuro: Alert, Focal Deficits, Oriented Times 3, Other (left Up and low extremity weakness) Cardiovascular: Regular rate, Normal S1, Normal S2 Respiratory: Chest non-tender, No respiratory distress, Breath sounds nml Abdomen: Normal bowel sounds, Soft, No tenderness Extremities: Normal pulses - Results Results: Laboratory Results WBC 7.8 x10^3/uL (4.8-10.8) 10/14/20 04:56 RBC 4.54 10^6/uL (4.70-6.10) L 10/14/20 04:56 Hgb 13.0 g/dL (14.0-18.0) L 10/14/20 04:56 Hct 37.6 % (42.0-52.0) L 10/14/20 04:56 MCV 82.8 fL (80.0-94.0) 10/14/20 04:56 MCH 28.6 pg (27.0-31.0) 10/14/20 04:56 MCHC 34.6 g/dL (32.0-36.0) 10/14/20 04:56 RDW 13.0 % (12.0-15.0) 10/14/20 04:56 Plt Count 193 10^3/uL (130-450) 10/14/20 04:56 MPV 10.4 fL (7.4-11.4) 10/14/20 04:56 Neut # (Auto) 5.4 10^3/uL (1.5-6.6) 10/14/20 04:56 Lymph # (Auto) 1.4 10^3/uL (1.5-3.5) L 10/14/20 04:56 [place] # (Auto) 0.7 10^3/uL (0.0-1.0) 10/14/20 04:56 Eos # (Auto) 0.2 10^3/uL (0.0-0.7) 10/14/20 04:56 Baso # (Auto) 0.0 10^3/uL (0.0-0.1) 10/14/20 04:56 Absolute Nucleated RBC 0.00 x10^3/uL 10/14/20 04:56 Nucleated RBC % 0.0 /100WBC 10/14/20 04:56 PT 12.1 secs (9.9-12.6) 10/13/20 19:46 INR 1.1 (0.8-1.2) 10/13/20 19:46 APTT 24.7 secs (24.9-33.3) L 10/13/20 19:46 Sodium 135 mmol/L (135-145) 10/14/20 04:56 Potassium 3.3 mmol/L (3.5-5.0) L 10/14/20 04:56 Chloride 99 mmol/L (101-111) L 10/14/20 04:56 Carbon Dioxide 26 mmol/L (21-32) 10/14/20 04:56 Anion Gap 10.0 (6-13) 10/14/20 04:56 BUN 14 mg/dL (6-20) 10/14/20 04:56 Creatinine 0.8 mg/dL (0.6-1.2) 10/14/20 04:56 Estimated GFR (MDRD) 96 (>89) 10/14/20 04:56 Glucose 241 mg/dL (70-100) H 10/14/20 04:56 POC Whole Bld Glucose 285 mg/dL (70 - 100) H 10/14/20 10:58 Estimat Average Glucose 186 mg/dL (70-100) H 10/13/20 19:46 Hemoglobin A1c % 8.1 % (4.27-6.07) H 10/13/20 19:46 Calcium 8.7 mg/dL (8.5-10.3) 10/14/20 04:56 Total Bilirubin 0.8 mg/dL (0.2-1.0) 10/13/20 19:46 AST 17 IU/L (10-42) 10/13/20 19:46 ALT 23 IU/L (10-60) 10/13/20 19:46 Alkaline Phosphatase 66 IU/L (42-121) 10/13/20 19:46 Total Protein 8.0 g/dL (6.7-8.2) 10/13/20 19:46 Albumin 4.6 g/dL (3.2-5.5) 10/13/20 19:46 Globulin 3.4 g/dL (2.1-4.2) 10/13/20 19:46 Albumin/Globulin Ratio 1.4 (1.0-2.2) 10/13/20 19:46 Triglycerides 79 mg/dL (-149) 10/14/20 04:56 Cholesterol 114 mg/dL (-199) 10/14/20 04:56 LDL Cholesterol, Calc 69 mg/dL (-129) 10/14/20 04:56 VLDL Cholesterol 16 mg/dL 10/14/20 04:56 HDL Cholesterol 29 mg/dL (60-) L 10/14/20 04:56 LDL/HDL Ratio 2.4 (<3.6) 10/14/20 04:56 Cholesterol/HDL Ratio 3.9 (<5.0) 10/14/20 04:56 Lipase 47 U/L (22-51) 10/13/20 19:46 TSH 2.85 uIU/mL (0.34-5.60) 10/13/20 19:46 Urine Color YELLOW 10/13/20 20:53 Urine Clarity CLEAR (CLEAR) 10/13/20 20:53 Urine pH 5.5 PH (5.0-7.5) 10/13/20 20:53 Ur Specific [place] <=1.005 (1.002-1.030) 10/13/20 20:53 Urine Protein NEGATIVE mg/dL (NEGATIVE) 10/13/20 20:53 Urine Glucose (UA) 500 mg/dL (NEGATIVE) H 10/13/20 20:53 Urine Ketones 15 mg/dL (NEGATIVE) H 10/13/20 20:53 Urine Occult Blood NEGATIVE (NEGATIVE) 10/13/20 20:53 Urine Nitrite NEGATIVE (NEGATIVE) 10/13/20 20:53 Urine Bilirubin NEGATIVE (NEGATIVE) 10/13/20 20:53 Urine Urobilinogen 1 (NORMAL) E.U./dL (NORMAL) 10/13/20 20:53 Ur Leukocyte Esterase NEGATIVE (NEGATIVE) 10/13/20 20:53 Ur Microscopic Review NOT INDICATED 10/13/20 20:53 Urine Culture Comments NOT INDICATED 10/13/20 20:53 Nasal Adenovirus (PCR) NOT DETECTED 10/13/20 21:05 Nasal B. parapertussis DNA (PCR) NOT DETECTED 10/13/20 21:05 Nasal Coronavir 229E PCR NOT DETECTED 10/13/20 21:05 Nasal Coronavir HKU1 PCR NOT DETECTED 10/13/20 21:05 Nasal Coronavir NL63 PCR NOT DETECTED 10/13/20 21:05 Nasal Coronavir OC43 PCR NOT DETECTED 10/13/20 21:05 Nasal Enterovir/Rhinovir PCR NOT DETECTED 10/13/20 21:05 Nasal Influenza B PCR NOT DETECTED 10/13/20 21:05 Nasal Influenza A PCR NOT DETECTED 10/13/20 21:05 Nasal Parainfluen 1 PCR NOT DETECTED 10/13/20 21:05 Nasal Parainfluen 2 PCR NOT DETECTED 10/13/20 21:05 Nasal Parainfluen 3 PCR NOT DETECTED 10/13/20 21:05 Nasal Parainfluen 4 PCR NOT DETECTED 10/13/20 21:05 Nasal RSV (PCR) NOT DETECTED 10/13/20 21:05 Nasal B.pertussis DNA PCR NOT DETECTED 10/13/20 21:05 Nasal C.pneumoniae (PCR) NOT DETECTED 10/13/20 21:05 Rob Human Metapneumo PCR NOT DETECTED 10/13/20 21:05 Nasal M.pneumoniae (PCR) NOT DETECTED 10/13/20 21:05 Nasal SARS-CoV-2 (PCR) NOT DETECTED 10/13/20 21:05 Salicylates < 6.0 mg/dL 10/13/20 19:46 Urine Opiates Screen NEGATIVE (NEGATIVE) 10/13/20 20:53 Ur Oxycodone Screen NEGATIVE (NEGATIVE) 10/13/20 20:53 Urine Methadone Screen NEGATIVE (NEGATIVE) 10/13/20 20:53 Ur Propoxyphene Screen NEGATIVE (NEGATIVE) 10/13/20 20:53 Acetaminophen < 10 ug/mL (10-30) L 10/13/20 19:46 Ur Barbiturates Screen NEGATIVE (NEGATIVE) 10/13/20 20:53 Ur Tricyclics Screen NEGATIVE (NEGATIVE) 10/13/20 20:53 Ur Phencyclidine Scrn NEGATIVE (NEGATIVE) 10/13/20 20:53 Ur Amphetamine Screen NEGATIVE (NEGATIVE) 10/13/20 20:53 U Methamphetamines Scrn NEGATIVE (NEGATIVE) 10/13/20 20:53 U Benzodiazepines Scrn NEGATIVE (NEGATIVE) 10/13/20 20:53 Urine Cocaine Screen NEGATIVE (NEGATIVE) 10/13/20 20:53 U Cannabinoids Screen NEGATIVE (NEGATIVE) 10/13/20 20:53 Ethyl Alcohol 43.4 mg/dL 10/13/20 19:46 Sepsis Event Note (H) - Evaluation Current Stage of Sepsis: Ruled out ABX Reporting Has patient been on IV antibiotics over the past 48 hours?: No Current Medications - Current Medications Current Medications: Active Medications Acetaminophen (Acetaminophen 325 Mg Tablet) 650 mg PO Q4HR PRN PRN Reason: Pain 1 to 4 Last Admin: 10/14/20 01:53 Dose: 650 mg Documented by: Aspirin (Aspirin Ec 81 Mg Tablet) 81 mg PO DAILY MADIE Last Admin: 10/14/20 08:04 Dose: 81 mg Documented by: Atorvastatin Calcium (Atorvastatin 40 Mg Tablet) 80 mg PO QPM MADIE Hydralazine HCl (Hydralazine Inj 20 Mg/Ml Vial) 10 mg IVP Q4H PRN PRN Reason: PER PHYSICIAN ORDER Insulin Aspart (Insulin Aspart 300 Unit/3 Ml Pen) 2 - 10 unit SUBQ 0800,1200,1700,2100 MADIE; Protocol Last Admin: 10/14/20 12:07 Dose: 8 unit Documented by: Insulin Glargine (Insulin Glargine 300 Unit/3 Ml Pen) 5 unit SUBQ QDBREAKFAST [facility] Last Admin: 10/14/20 09:33 Dose: 5 unit Documented by: Metoprolol Succinate (Metoprolol Succinate 25 Mg Tablet) 25 mg PO QPM [facility] Pantoprazole Sodium (Pantoprazole 40 Mg Tablet) 40 mg PO QDAC [facility] Last Admin: 10/14/20 06:24 Dose: Not Given Documented by: Sodium Chloride (Sodium Chloride Flush 0.9% 10 Ml Syringe) 10 ml IVP PRN PRN PRN Reason: NEEDED PER PROVIDER ORDERS Sodium Chloride (Sodium Chloride Flush 0.9% 10 Ml Syringe) 10 ml IVP 0100,0900,1700 [facility] Last Admin: 10/14/20 08:05 Dose: 10 ml Documented by: Amlodipine Besylate [Norvasc] 10 mg PO DAILY 02/08/17 Metformin HCl 850 mg PO BID 02/08/17 Hydrochlorothiazide 25 mg PO DAILY 10/14/20 Metoprolol Succinate [Toprol Xl] 25 mg PO QPM 10/14/20 Pantoprazole [Protonix] 40 mg PO QDAC 10/14/20 Simvastatin [Zocor] 10 mg PO QPM 10/14/20 lisinopriL [Lisinopril] 20 mg PO BID 10/14/20
--- NOTE | 2020-10-14 15:27 | MRI Report ---
PROCEDURE: Brain W/O INDICATIONS: CVA vs TIA work up, slurred speech TECHNIQUE: Noncontrast axial T1 spin echo, axial T2 fast spin echo, sagittal and axial FLAIR, coronal T2 fast sp in echo, axial gradient echo, axial diffusion and ADC through the brain. COMPARISON: CT head 08/02/2020, on 10/13/2020, CTA head and neck 10/13/2020 FINDINGS: Image quality: Excellent. The ventricular system and cortical sulci demonstrate atrophy, consistent for patient's stated age. There are areas of hyperintense T2/FLAIR signal in the periventricular and subcortical white matter. There is no acute intra or extra-axial fluid collection. No acute hemorrhage, mass lesion or midlin e shift. Brainstem is unremarkable. There is hyperintense diffusion signal within the right aspect o f the brendon with corresponding hypointense ADC signal. There is increased T2/FLAIR signal within this region. Globes are symmetrical. Sinuses are aerated. Osseous structures are intact. IMPRESSION: 1. Acute/subacute ischemia within the brendon as above without superimposed hemorrhage. 2. Chronic microvascular ischemic changes. Reviewed by: Christina Curry MD on 10/14/2020 3:26 PM PST Approved by: Christina Curry MD on 10/14/2020 3:26 PM PST Station ID: [id number]
[2020-10-14] MEDS: METOPROLOL SUCCINATE 25 MG TABLET PO SCH (20:00)
[2020-10-14] MEDS: lisinopriL 20 MG TABLET PO SCH (20:01)
[2020-10-14] MEDS: ATORVASTATIN 40 MG TABLET PO SCH (21:34)
[2020-10-15] MEDS: SODIUM CHLORIDE FLUSH 0.9% 10 ML SYRINGE IVP SCH ×4 (00:36→23:51)
[2020-10-15 05:05] LABS: BASOPHILS % (AUTO) 0.4 %; EOSINOPHILS # (AUTO) 0.2 10^3/uL (0.0-0.7); EOSINOPHILS % (AUTO) 1.8 %; HGB - HEMOGLOBIN 13.3 g/dL (14.0-18.0); MEAN CORPUSCULAR HEMOGLOBIN 28.4 pg (27.0-31.0); MEAN CORPUSCULAR HGB CONC 34.1 g/dL (32.0-36.0); MEAN CORPUSCULAR VOLUME 83.2 fL (80.0-94.0); MEAN PLATELET VOLUME 10.2 fL (7.4-11.4); MONOCYTES # (AUTO) 0.9 10^3/uL (0.0-1.0); MONOCYTES % (AUTO) 9.2 %; NEUTROPHILS # (AUTO) 7.1 10^3/uL (1.5-6.6); NEUTROPHILS % (AUTO) 77.1 %; PLT - PLATELET COUNT 201 10^3/uL (130-450); RED BLOOD COUNT 4.69 10^6/uL (4.70-6.10); RED CELL DISTRIBUTION WIDTH 13.3 % (12.0-15.0); WHITE BLOOD COUNT 9.2 x10^3/uL (4.8-10.8)
[2020-10-15 05:14] LABS: CALCIUM 8.9 mg/dL (8.5-10.3); CREATININE 0.8 mg/dL (0.6-1.2); POTASSIUM 3.6 mmol/L (3.5-5.0)
[2020-10-15] MEDS: PANTOPRAZOLE 40 MG TABLET PO SCH (06:09)
[2020-10-15] MEDS: INSULIN GLARGINE 300 UNIT/3 ML PEN SUBQ SCH (07:43)
[2020-10-15] MEDS: INSULIN ASPART 300 UNIT/3 ML PEN SUBQ SCH ×7 (07:43→21:03)
[2020-10-15] MEDS: lisinopriL 20 MG TABLET PO SCH (08:24)
[2020-10-15] MEDS: ASPIRIN EC 81 MG TABLET PO SCH (08:24)
[2020-10-15] MEDS: amLODIPine 5 MG TABLET PO SCH (08:24)
[2020-10-15] MEDS: polyethylene glycoL 3350 17 GM PACKET PO SCH (08:25)
[2020-10-15] MEDS ORDERED: hydroCHLOROthiazide 25 MG TABLET PO SCH (09:00)
[2020-10-15] MEDS ORDERED: glipiZIDE 5 MG TABLET PO SCH (11:45)
--- NOTE | 2020-10-15 17:08 | PROVIDER PROGRESS NOTE ---
Assessment/Plan - Problem List (1) Stroke Assessment/Plan: 3/ MRI of brain reveal right pod stroke without Superimposed hemorrhage. Echo show unremarkable. Physical therapist and occupational therapist evaluated and treated the patient, Recommend inpatient rehab. I updated pt's medical Condition and care plan to patient's son. Patient speech is improved without slurred speech now. pt report he feel better and stronger on today. Patient still present left upper and lower extremity weakness. PT and OT evaluated and treated the patient, Recommended patient is not dischargeable at this point, Patient still present unsteady gait as well. pt is inpt status now. MRI of brain and echo are pending. Continue aspirin, statin medication Continue PT and OT Continue let blood pressure rise for 24 hours continue tight diabetes control. (2) Diabetes mellitus 3/ pt's glucose is still lori, increase lantus in the night, and slide scale, and glipizide PO. pt has no medicare D plan, order diabetes education for pt pt's glucose elevated, not well controlled. pt report he did not insulin at home. Patient's hemoglobin A1c is 8.1. add Lantus and increase Slide scale level with Accu-Cheks before every meal and at bedtime, Hypoglycemia as per protocol (3) Hyperlipidemia Conclusion/Plan: Atorvastatin 80 mg p.o. nightly ordered. Lipid panel in the morning. (4) Hypertension pt has elevated BP, resume pt's home BP meds, increase Lisinopril 30 mg twice daily. vital signs monitor Will allow permissive hypertension for 24 hours. We will treat with hydralazine as needed for systolic greater than 180. will resume Patient home BP meds on lisinopril and amlodipine 10mg daily - Current Meds Current Meds: Current Medications Generic Name Dose Route Start Last Admin Trade Name Freq PRN Reason Stop Dose Admin Acetaminophen 650 mg 10/13/20 20:45 10/14/20 01:53 Acetaminophen 325 Mg Tablet PO 650 mg Q4HR PRN Administration Pain 1 to 4 Amlodipine Besylate 10 mg 10/15/20 09:00 10/15/20 08:24 Amlodipine 5 Mg Tablet PO 10 mg DAILY MADIE Administration Aspirin 81 mg 10/14/20 09:00 10/15/20 08:24 Aspirin Ec 81 Mg Tablet PO 81 mg DAILY MADIE Administration Atorvastatin Calcium 80 mg 10/14/20 22:14 10/14/20 21:34 Atorvastatin 40 Mg Tablet PO 80 mg QPM MADIE Administration Glipizide 5 mg 10/15/20 11:45 10/15/20 12:31 Glipizide 5 Mg Tablet PO 5 mg 0730 MADIE Administration Hydralazine HCl 10 mg 10/13/20 22:01 10/14/20 16:31 Hydralazine Inj 20 Mg/Ml Vial IVP 10 mg Q4H PRN Administration PER PHYSICIAN ORDER Hydrochlorothiazide 25 mg 10/15/20 09:00 10/15/20 08:24 Hydrochlorothiazide 25 Mg Tablet PO 25 mg DAILY MADIE Administration Insulin Aspart 5 unit 10/15/20 09:15 10/15/20 11:57 Insulin Aspart 300 Unit/3 Ml Pen SUBQ 5 unit TIDWM [facility] Administration Protocol Insulin Aspart 3 - 11 unit 10/15/20 12:00 10/15/20 11:57 Insulin Aspart 300 Unit/3 Ml Pen SUBQ 9 unit 0800,1200,1700,2100 [facility] Administration Protocol Metoprolol Succinate 25 mg 10/14/20 21:00 10/14/20 20:00 Metoprolol Succinate 25 Mg Tablet PO 25 mg QPM MADIE Administration Pantoprazole Sodium 40 mg 10/14/20 07:00 10/15/20 06:09 Pantoprazole 40 Mg Tablet PO 40 mg QDAC MADIE Administration Polyethylene Glycol 17 gm 10/15/20 09:00 10/15/20 08:25 Polyethylene Glycol 3350 17 Gm Packet PO Not Given DAILY MADIE Sodium Chloride 10 ml 10/14/20 01:00 10/15/20 08:24 Sodium Chloride Flush 0.9% 10 Ml Syringe IVP 10 ml 0100,0900,1700 [facility] Administration - Lab Result Fish Bone Diagrams: 10/15/20 04:55 10/15/20 04:55 - Additional Planning My Orders: My Active Orders 10/14/20 21:00 Metoprolol Succinate [Toprol Xl] 25 mg PO QPM 10/15/20 09:15 Insulin Aspart [NovoLOG] 5 unit SUBQ TIDWM 10/15/20 11:45 glipiZIDE [Glucotrol] 5 mg PO 0730 10/15/20 12:00 Insulin Aspart [NovoLOG] 3 - 11 unit SUBQ 0800,1200,1700,2100 10/15/20 21:00 Insulin Glargine [Lantus Solostar] 10 unit SUBQ QPM lisinopriL [Zestril] 30 mg PO BID Subjective - Subjective Patient Reports: Feeling Better Objective Vital Signs: Vital Signs - 24 hr 10/14/20 10/14/20 10/14/20 18:00 19:41 20:30 Temperature 36.7 C 36.7 C 36.9 C Heart Rate [ 78 78 67 Brachial] Respiratory 18 18 Rate Blood Pressure 189/72 H [Left Brachial artery] Blood Pressure 189/72 H 160/73 H [Right Brachial artery] O2 Saturation 96 96 98 10/15/20 10/15/20 10/15/20 00:40 04:58 07:29 Temperature 36.8 C 36.6 C 36.3 C L Heart Rate [ 61 56 L 61 Brachial] Respiratory 18 16 18 Rate Blood Pressure [Left Brachial artery] Blood Pressure 151/83 H 159/92 H 156/83 H [Right Brachial artery] O2 Saturation 97 98 97 10/15/20 10/15/20 11:16 15:56 Temperature 36.2 C L 37.1 C Heart Rate [ 61 71 Brachial] Respiratory 18 18 Rate Blood Pressure [Left Brachial artery] Blood Pressure 168/72 H 157/83 H [Right Brachial artery] O2 Saturation 96 97 Oxygen O2 Source Room air I&O (Last 24 Hrs): Intake and Output Totals x24h 10/13/20 10/14/20 10/15/20 23:59 23:59 23:59 Intake Total 2290 1000 Output Total 2765 1400 Balance -475 -400 General: Alert, Oriented x3, Cooperative, No acute distress HEENT: Atraumatic Neck: Supple Lymphatic: no adenopathy Neuro: Alert, Focal Deficits, Oriented Times 3 Cardiovascular: Regular rate, Normal S1, Normal S2 Respiratory: Chest non-tender, No respiratory distress Abdomen: Normal bowel sounds, Soft, No tenderness Extremities: Normal pulses - Results Results: Laboratory Results WBC 9.2 x10^3/uL (4.8-10.8) 10/15/20 04:55 RBC 4.69 10^6/uL (4.70-6.10) L 10/15/20 04:55 Hgb 13.3 g/dL (14.0-18.0) L 10/15/20 04:55 Hct 39.0 % (42.0-52.0) L 10/15/20 04:55 MCV 83.2 fL (80.0-94.0) 10/15/20 04:55 MCH 28.4 pg (27.0-31.0) 10/15/20 04:55 MCHC 34.1 g/dL (32.0-36.0) 10/15/20 04:55 RDW 13.3 % (12.0-15.0) 10/15/20 04:55 Plt Count 201 10^3/uL (130-450) 10/15/20 04:55 MPV 10.2 fL (7.4-11.4) 10/15/20 04:55 Neut # (Auto) 7.1 10^3/uL (1.5-6.6) H 10/15/20 04:55 Lymph # (Auto) 1.0 10^3/uL (1.5-3.5) L 10/15/20 04:55 [place] # (Auto) 0.9 10^3/uL (0.0-1.0) 10/15/20 04:55 Eos # (Auto) 0.2 10^3/uL (0.0-0.7) 10/15/20 04:55 Baso # (Auto) 0.0 10^3/uL (0.0-0.1) 10/15/20 04:55 Absolute Nucleated RBC 0.00 x10^3/uL 10/15/20 04:55 Nucleated RBC % 0.0 /100WBC 10/15/20 04:55 PT 12.1 secs (9.9-12.6) 10/13/20 19:46 INR 1.1 (0.8-1.2) 10/13/20 19:46 APTT 24.7 secs (24.9-33.3) L 10/13/20 19:46 Sodium 134 mmol/L (135-145) L 10/15/20 04:55 Potassium 3.6 mmol/L (3.5-5.0) 10/15/20 04:55 Chloride 100 mmol/L (101-111) L 10/15/20 04:55 Carbon Dioxide 25 mmol/L (21-32) 10/15/20 04:55 Anion Gap 9.0 (6-13) 10/15/20 04:55 BUN 14 mg/dL (6-20) 10/15/20 04:55 Creatinine 0.8 mg/dL (0.6-1.2) 10/15/20 04:55 Estimated GFR (MDRD) 96 (>89) 10/15/20 04:55 Glucose 314 mg/dL (70-100) H 10/15/20 04:55 POC Whole Bld Glucose 279 mg/dL (70 - 100) H 10/15/20 11:14 Estimat Average Glucose 186 mg/dL (70-100) H 10/13/20 19:46 Hemoglobin A1c % 8.1 % (4.27-6.07) H 10/13/20 19:46 Calcium 8.9 mg/dL (8.5-10.3) 10/15/20 04:55 Total Bilirubin 0.8 mg/dL (0.2-1.0) 10/13/20 19:46 AST 17 IU/L (10-42) 10/13/20 19:46 ALT 23 IU/L (10-60) 10/13/20 19:46 Alkaline Phosphatase 66 IU/L (42-121) 10/13/20 19:46 Total Protein 8.0 g/dL (6.7-8.2) 10/13/20 19:46 Albumin 4.6 g/dL (3.2-5.5) 10/13/20 19:46 Globulin 3.4 g/dL (2.1-4.2) 10/13/20 19:46 Albumin/Globulin Ratio 1.4 (1.0-2.2) 10/13/20 19:46 Triglycerides 79 mg/dL (-149) 10/14/20 04:56 Cholesterol 114 mg/dL (-199) 10/14/20 04:56 LDL Cholesterol, Calc 69 mg/dL (-129) 10/14/20 04:56 VLDL Cholesterol 16 mg/dL 10/14/20 04:56 HDL Cholesterol 29 mg/dL (60-) L 10/14/20 04:56 LDL/HDL Ratio 2.4 (<3.6) 10/14/20 04:56 Cholesterol/HDL Ratio 3.9 (<5.0) 10/14/20 04:56 Lipase 47 U/L (22-51) 10/13/20 19:46 TSH 2.85 uIU/mL (0.34-5.60) 10/13/20 19:46 Urine Color YELLOW 10/13/20 20:53 Urine Clarity CLEAR (CLEAR) 10/13/20 20:53 Urine pH 5.5 PH (5.0-7.5) 10/13/20 20:53 Ur Specific [place] <=1.005 (1.002-1.030) 10/13/20 20:53 Urine Protein NEGATIVE mg/dL (NEGATIVE) 10/13/20 20:53 Urine Glucose (UA) 500 mg/dL (NEGATIVE) H 10/13/20 20:53 Urine Ketones 15 mg/dL (NEGATIVE) H 10/13/20 20:53 Urine Occult Blood NEGATIVE (NEGATIVE) 10/13/20 20:53 Urine Nitrite NEGATIVE (NEGATIVE) 10/13/20 20:53 Urine Bilirubin NEGATIVE (NEGATIVE) 10/13/20 20:53 Urine Urobilinogen 1 (NORMAL) E.U./dL (NORMAL) 10/13/20 20:53 Ur Leukocyte Esterase NEGATIVE (NEGATIVE) 10/13/20 20:53 Ur Microscopic Review NOT INDICATED 10/13/20 20:53 Urine Culture Comments NOT INDICATED 10/13/20 20:53 Nasal Adenovirus (PCR) NOT DETECTED 10/13/20 21:05 Nasal B. parapertussis DNA (PCR) NOT DETECTED 10/13/20 21:05 Nasal Coronavir 229E PCR NOT DETECTED 10/13/20 21:05 Nasal Coronavir HKU1 PCR NOT DETECTED 10/13/20 21:05 Nasal Coronavir NL63 PCR NOT DETECTED 10/13/20 21:05 Nasal Coronavir OC43 PCR NOT DETECTED 10/13/20 21:05 Nasal Enterovir/Rhinovir PCR NOT DETECTED 10/13/20 21:05 Nasal Influenza B PCR NOT DETECTED 10/13/20 21:05 Nasal Influenza A PCR NOT DETECTED 10/13/20 21:05 Nasal Parainfluen 1 PCR NOT DETECTED 10/13/20 21:05 Nasal Parainfluen 2 PCR NOT DETECTED 10/13/20 21:05 Nasal Parainfluen 3 PCR NOT DETECTED 10/13/20 21:05 Nasal Parainfluen 4 PCR NOT DETECTED 10/13/20 21:05 Nasal RSV (PCR) NOT DETECTED 10/13/20 21:05 Nasal B.pertussis DNA PCR NOT DETECTED 10/13/20 21:05 Nasal C.pneumoniae (PCR) NOT DETECTED 10/13/20 21:05 Rob Human Metapneumo PCR NOT DETECTED 10/13/20 21:05 Nasal M.pneumoniae (PCR) NOT DETECTED 10/13/20 21:05 Nasal SARS-CoV-2 (PCR) NOT DETECTED 10/13/20 21:05 Salicylates < 6.0 mg/dL 10/13/20 19:46 Urine Opiates Screen NEGATIVE (NEGATIVE) 10/13/20 20:53 Ur Oxycodone Screen NEGATIVE (NEGATIVE) 10/13/20 20:53 Urine Methadone Screen NEGATIVE (NEGATIVE) 10/13/20 20:53 Ur Propoxyphene Screen NEGATIVE (NEGATIVE) 10/13/20 20:53 Acetaminophen < 10 ug/mL (10-30) L 10/13/20 19:46 Ur Barbiturates Screen NEGATIVE (NEGATIVE) 10/13/20 20:53 Ur Tricyclics Screen NEGATIVE (NEGATIVE) 10/13/20 20:53 Ur Phencyclidine Scrn NEGATIVE (NEGATIVE) 10/13/20 20:53 Ur Amphetamine Screen NEGATIVE (NEGATIVE) 10/13/20 20:53 U Methamphetamines Scrn NEGATIVE (NEGATIVE) 10/13/20 20:53 U Benzodiazepines Scrn NEGATIVE (NEGATIVE) 10/13/20 20:53 Urine Cocaine Screen NEGATIVE (NEGATIVE) 10/13/20 20:53 U Cannabinoids Screen NEGATIVE (NEGATIVE) 10/13/20 20:53 Ethyl Alcohol 43.4 mg/dL 10/13/20 19:46 Sepsis Event Note (H) - Evaluation Current Stage of Sepsis: Ruled out ABX Reporting Has patient been on IV antibiotics over the past 48 hours?: No Current Medications - Current Medications Current Medications: Active Medications Acetaminophen (Acetaminophen 325 Mg Tablet) 650 mg PO Q4HR PRN PRN Reason: Pain 1 to 4 Last Admin: 10/14/20 01:53 Dose: 650 mg Documented by: Amlodipine Besylate (Amlodipine 5 Mg Tablet) 10 mg PO DAILY [facility] Last Admin: 10/15/20 08:24 Dose: 10 mg Documented by: Aspirin (Aspirin Ec 81 Mg Tablet) 81 mg PO DAILY [facility] Last Admin: 10/15/20 08:24 Dose: 81 mg Documented by: Atorvastatin Calcium (Atorvastatin 40 Mg Tablet) 80 mg PO QPM [facility] Last Admin: 10/14/20 21:34 Dose: 80 mg Documented by: Glipizide (Glipizide 5 Mg Tablet) 5 mg PO 0730 [facility] Last Admin: 10/15/20 12:31 Dose: 5 mg Documented by: Hydralazine HCl (Hydralazine Inj 20 Mg/Ml Vial) 10 mg IVP Q4H PRN PRN Reason: PER PHYSICIAN ORDER Last Admin: 10/14/20 16:31 Dose: 10 mg Documented by: Hydrochlorothiazide (Hydrochlorothiazide 25 Mg Tablet) 25 mg PO DAILY [facility] Last Admin: 10/15/20 08:24 Dose: 25 mg Documented by: Insulin Aspart (Insulin Aspart 300 Unit/3 Ml Pen) 5 unit SUBQ TIDWM [facility]; Protocol Last Admin: 10/15/20 11:57 Dose: 5 unit Documented by: Insulin Aspart (Insulin Aspart 300 Unit/3 Ml Pen) 3 - 11 unit SUBQ 0800,1200,1700,2100 [facility]; Protocol Last Admin: 10/15/20 11:57 Dose: 9 unit Documented by: Insulin Glargine (Insulin Glargine 300 Unit/3 Ml Pen) 10 unit SUBQ QPM [facility] Lisinopril (Lisinopril 20 Mg Tablet) 30 mg PO BID [facility] Metoprolol Succinate (Metoprolol Succinate 25 Mg Tablet) 25 mg PO QPM [facility] Last Admin: 10/14/20 20:00 Dose: 25 mg Documented by: Pantoprazole Sodium (Pantoprazole 40 Mg Tablet) 40 mg PO QDAC [facility] Last Admin: 10/15/20 06:09 Dose: 40 mg Documented by: Polyethylene Glycol (Polyethylene Glycol 3350 17 Gm Packet) 17 gm PO DAILY [facility] Last Admin: 10/15/20 08:25 Dose: Not Given Documented by: Sodium Chloride (Sodium Chloride Flush 0.9% 10 Ml Syringe) 10 ml IVP PRN PRN PRN Reason: NEEDED PER PROVIDER ORDERS Sodium Chloride (Sodium Chloride Flush 0.9% 10 Ml Syringe) 10 ml IVP 0100,0900,1700 [facility] Last Admin: 10/15/20 08:24 Dose: 10 ml Documented by: Amlodipine Besylate [Norvasc] 10 mg PO DAILY 02/08/17 Metformin HCl 850 mg PO BID 02/08/17 Hydrochlorothiazide 25 mg PO DAILY 10/14/20 Metoprolol Succinate [Toprol Xl] 25 mg PO QPM 10/14/20 Pantoprazole [Protonix] 40 mg PO QDAC 10/14/20 Simvastatin [Zocor] 10 mg PO QPM 10/14/20 lisinopriL [Lisinopril] 20 mg PO BID 10/14/20
[2020-10-15] MEDS ORDERED: INSULIN GLARGINE 300 UNIT/3 ML PEN SUBQ SCH (21:00)
[2020-10-15] MEDS ORDERED: lisinopriL 20 MG TABLET PO SCH (21:00)
[2020-10-15] MEDS: ATORVASTATIN 40 MG TABLET PO SCH (21:02)
[2020-10-15] MEDS: METOPROLOL SUCCINATE 25 MG TABLET PO SCH (21:02)
[2020-10-16 05:25] LABS: BASOPHILS # (AUTO) 0.1 10^3/uL (0.0-0.1); BASOPHILS % (AUTO) 0.5 %; EOSINOPHILS # (AUTO) 0.2 10^3/uL (0.0-0.7); EOSINOPHILS % (AUTO) 2.1 %; HCT - HEMATOCRIT 42.3 % (42.0-52.0); LYMPHOCYTES # (AUTO) 1.2 10^3/uL (1.5-3.5); LYMPHOCYTES % (AUTO) 12.9 %; MEAN CORPUSCULAR HEMOGLOBIN 29.2 pg (27.0-31.0); MEAN CORPUSCULAR HGB CONC 35.5 g/dL (32.0-36.0); MEAN CORPUSCULAR VOLUME 82.5 fL (80.0-94.0); MEAN PLATELET VOLUME 10.8 fL (7.4-11.4); MONOCYTES # (AUTO) 0.9 10^3/uL (0.0-1.0); MONOCYTES % (AUTO) 9.9 %; NEUTROPHILS # (AUTO) 6.9 10^3/uL (1.5-6.6); NEUTROPHILS % (AUTO) 74.2 %; PLT - PLATELET COUNT 225 10^3/uL (130-450); RED BLOOD COUNT 5.13 10^6/uL (4.70-6.10); RED CELL DISTRIBUTION WIDTH 13.2 % (12.0-15.0); WHITE BLOOD COUNT 9.4 x10^3/uL (4.8-10.8)
[2020-10-16 05:37] LABS: CALCIUM 9.3 mg/dL (8.5-10.3); CREATININE 0.8 mg/dL (0.6-1.2); POTASSIUM 3.2 mmol/L (3.5-5.0)
[2020-10-16] MEDS: PANTOPRAZOLE 40 MG TABLET PO SCH (06:05)
[2020-10-16] MEDS ORDERED: INSULIN GLARGINE 300 UNIT/3 ML PEN SUBQ SCH ×2 (08:00)
[2020-10-16] MEDS: INSULIN ASPART 300 UNIT/3 ML PEN SUBQ SCH ×6 (08:05→16:59)
[2020-10-16] MEDS: SODIUM CHLORIDE FLUSH 0.9% 10 ML SYRINGE IVP SCH ×2 (08:06→16:59)
[2020-10-16] MEDS: lisinopriL 20 MG TABLET PO SCH ×2 (08:28→18:51)
[2020-10-16] MEDS: amLODIPine 5 MG TABLET PO SCH (08:28)
[2020-10-16] MEDS: ASPIRIN EC 81 MG TABLET PO SCH (08:28)
[2020-10-16] MEDS: polyethylene glycoL 3350 17 GM PACKET PO SCH (08:29)
[2020-10-16] MEDS ORDERED: POTASSIUM CHLORIDE 20 MEQ TABLET PO ONE (08:30)
[2020-10-16] MEDS ORDERED: glipiZIDE 5 MG TABLET PO SCH (08:30)
[2020-10-16] MEDS ORDERED: hydroCHLOROthiazide 25 MG TABLET PO SCH (09:00)
[2020-10-16] MEDS ORDERED: lisinopriL 20 MG TABLET PO SCH (09:00)
--- NOTE | 2020-10-16 12:31 | Discharge Plan ---
Discharge Plan Problem Reviewed?: Yes Disposition: Home, Self Care Condition: Stable Prescriptions: Aspirin EC [Ecotrin] 81 mg PO DAILY #30 tablet glipiZIDE [Glucotrol] 10 mg PO 0730 #60 tablet hydroCHLOROthiazide [Hydrodiuril] 37.5 mg PO DAILY #60 tablet Insulin Glargine [Lantus Solostar] 15 unit SUBQ QPM #5 unit Atorvastatin [Lipitor] 80 mg PO QPM #60 tablet Insulin Aspart [NovoLOG] 2 - 10 unit SUBQ 0800,1200,1700,2100 #5 unit lisinopriL [Zestril] 40 mg PO BID #120 tablet Diet: Diabetic Activity Restrictions: Activity as Tolerated Shower Restrictions: No (fall precaution) Instruction Topics: Stroke Ischemic, Stroke Sx, Stroke Taking Meds, Eat Healthy, Log Blood Sugar, Hyperglycemia, Hypoglycemia, Diabetes Professor Of [employer] Engineering Complications, Diabetes Type 2 Coping, Diabetes Carbs, Glipizide tablets, Insulin Injected, Diabetes Type 2 Oral Meds, Insulin Types, Atorvastatin tablets Health Concerns: stroke, uncontrolled diabetes, uncontrolled blood pressure Plan of Treatment: Unfortunately you were found to have stroke, new medication Aspirin and Lipitor are prescribed for you. you declined to go to inpt rehab and SNF, home health PT/OT/RN and ADL Aide are arranged for you. It is important for you to control your diabetes and blood pressure. New medication glipizide and insulin are prescribed for you, you have Glucometer in your home, please followup with nurse instruction how to use insulin, and prevention of hyperglycemia and hypoglycemia as well. Your home blood pressure medication dosage are increased as well for better control your blood pressure. Care Goals: stabilization and improvement of your medical conditions Assessment: Discussed the care plan with you, answered your questions, you understood. Additional Instructions or Follow Up instructions: You may followup with your PCP in one week, followup with neurologist as out-pt. Should your symptoms return or worsen, you may present ER or call 911 for help. Follow-Up Care: Home Health - RN, Home Health - PT, Home Health - OT, [facility] - Diabetes Ed No Smoking: If you smoke, Please STOP! Call for help. Follow-up with: Carissa Salazar DO [Primary Care Provider] -
--- NOTE | 2020-10-16 12:47 | DISCHARGE SUMMARY ---
Discharge Summary Admit Date: 10/13/20 Discharge Date: 10/16/20 Discharging Provider: Luis Antonio Ordonez Primary Care Provider: Dr. Carissa Salazar Condition at Discharge: Stable Discharge Disposition: 01 Home, Self Care Discharge Facility Name: home - DIAGNOSES Discharge Diagnoses with Status of Each Condition: (1) Stroke Unfortunately patient had a stroke. MRI confirm ischemia stroke in his right Lázaro. Patient Had significantly improved for his stroke. He has a normal speech now. His left-sided weakness improved but is still present. Patient declined to be discharge to inpatient rehab or SNF. Home health PT, OT, RN, funeral home associate are ranged by social work for patient. Patient is prescript aspirin and Lipitor, Follow-up with PCP, and neurologist as outpatient. (2) uncontrolled Diabetes mellitus Although pt's A1c is 8.1, But patient showed me his glucose level in his home Glucometer Has always been over 300. There is likely one of the reason to cause patient's stroke. Patient only take Metformin in the home, Obviously it is not enough at all. Patient had RN certified adaptive physical educator consult in the hospital and she also will follow up with patient as outpatient. Because the patient did not have Medicare D, pt state he might have difficult to pay insulin, so We will try to order glipizide with his home metformin for patient, but still not enough to control his glucose. Insulin is prescribed for patient. pt report he had Glucometer and other devices in home. I also did have extensive education for diabetes management in home such as special on how to prevent of hypoglycemia and Hyperglycemia in the home with nurse at the bedside for witness. Follow-up with PCP in one week to continue management of his diabetic (3) Hyperlipidemia Atorvastatin is prescribed for pt as standard treatment for his stroke (4) Hypertension pt has elevated BP, resume pt's home BP meds, increase Lisinopril and HCTZ dosage. pt has no metoprolol at home, re-write prescribe of metoprolol. - HPI History of Present Illness: refer from Dr. Zaidi's HPI on 10/13/20 Patient is a 70-year-old male with medical history significant for hypertension, hyperlipidemia and diabetes mellitus who presented to the ED with complaint of left-sided weakness and slurred speech. He think his symptoms started around 6 PM while he was at a movie theater in [place] however he was last seen/known to be well around 3 PM when the movie started. He initially notices symptoms when he was trying to go to the bathroom. He was having difficulties walking. Despite this he drove himself from [place] to his house in [place]. When he got home he was having difficulties going up stairs and when he laid on the Bed he had a hard time getting back up. He called his son who brought him to the ED. It would appear his son noted that his speech was slurred. The patient does not know when the slurred speech started because he did not have a need to talk to anybody up to that point. Separate note the patient had couple of beers with dinner today. By the time he arrived to the ED his speech had improved however left-sided weakness persist. He also has a positive [id number] test on the left side. He was noted to have a systolic blood pressure of 204. He expresses that he has a difficulty controlling his blood pressure at home. He denies blurry vision, double vision or vision loss. He reports a mild occipital headache. He has never experienced the symptoms before. He denies chest pain, dyspnea, abdominal pain, nausea, vomiting, fever or chills. He lives alone and is normally independent of activities of daily living. As a result of his presentation and persistent symptoms he is being admitted for further work-up. - HOSPITAL COURSE Hospital Course: Patient was admitted for left side weakness, slurring speech, stroke-like symptoms. MRI of the brain show patient had right side brendon ischemic stroke. Patient's slurring speech was resolved and improved. Patient's left-sided weakness is improved but still present. PT and OT evaluated and treatment the patient, recommended patient to discharge to inpatient rehab, and/or SNF. Patient declined to be discharged to inpatient rehab or SNF. Home health PT, OT, RN, funeral home associate are arranged for patient. In detail hospital course is as disch arge diagnosis summary. - ALLERGIES Allergies/Adverse Reactions: Allergies Allergy/AdvReac Type Severity Reaction Status Date / Time No Known Drug Allergies Allergy Verified 10/13/20 19:47 - MEDICATIONS Home Medications: Ambulatory Orders Medication Instructions Recorded Confirmed Amlodipine Besylate [Norvasc] 10 mg PO DAILY 02/08/17 10/14/20 Metformin HCl 850 mg PO BID 02/08/17 10/14/20 Pantoprazole [Protonix] 40 mg PO QDAC 10/14/20 10/14/20 Aspirin EC [Ecotrin] 81 mg PO DAILY #30 tablet 10/16/20 Atorvastatin [Lipitor] 80 mg PO QPM #60 tablet 10/16/20 Insulin Aspart [NovoLOG] 2 - 10 unit SUBQ 10/16/20 0800,1200,1700,2100 #5 unit Insulin Glargine [Lantus Solostar] 15 unit SUBQ QPM #5 unit 10/16/20 Metoprolol Succinate [Toprol Xl] 25 mg PO QPM 30 Days #30 tab 10/16/20 glipiZIDE [Glucotrol] 10 mg PO 0730 #60 tablet 10/16/20 hydroCHLOROthiazide [Hydrodiuril] 37.5 mg PO DAILY #60 tablet 10/16/20 lisinopriL [Zestril] 40 mg PO BID #120 tablet 10/16/20 - PHYSICAL EXAM AT DISCHARGE General Appearance: positive: No acute distress, Alert. negative: Lethargic Eyes Bilateral: positive: Normal inspection, PERRL, No lid inflammation ENT: positive: ENT inspection nml, No signs of dehydration. negative: Purulent nasal drainage, Dry mucous membranes Neck: positive: Nml inspection, Trachea midline. negative: Thyromegaly, Tracheal deviation Respiratory: positive: Chest non-tender, No respiratory distress, Breath sounds nml. negative: Wheezes, Rales Cardiovascular: positive: Regular rate & rhythm, No murmur. negative: Tachycardia, Bradycardia, Systolic murmur, Diastolic murmur Peripheral Pulses: positive: 2+ Abdomen: positive: Non-tender, Nml bowel sounds, No distention. negative: Tenderness, Guarding, Rebound Back: positive: Nml inspection Skin: positive: Color nml, Warm, Dry. negative: Cyanosis, Diaphoresis, Pallor Extremities: positive: Non-tender, Nml appearance. negative: Pedal edema, Calf tenderness Neurologic/Psychiatric: positive: Oriented x3, Mood/affect nml, Weakness, Other (pt still present left side upper and lower extremity weakness). negative: Motor nml, Sensation nml, Facial droop, Slurred/abnml speech, Depressed mood/affect - LABS Result Diagrams: 10/16/20 05:05 10/16/20 05:05 - SEPSIS Current Stage of Sepsis: Ruled out - FOLLOW UP Follow Up: Unfortunately you were found to have stroke, new medication Aspirin and Lipitor are prescribed for you. you declined to go to inpt rehab and SNF, home health PT/OT/RN and ADL Aide are arranged for you. It is important for you to control your diabetes and blood pressure. New medication glipizide and insulin are prescribed for you, you have Glucometer in your home, please followup with nurse instruction how to use insulin, and prevention of hyperglycemia and hypoglycemia as well. Your home blood pressure medication dosage are increased as well for better control your blood pressure. You may followup with your PCP in one week, followup with neurologist as out-pt. Should your symptoms return or worsen, you may present ER or call 911 for help. - TIME SPENT Time Spent in Discharge (Minutes): 30
[2020-10-16 16:18] VITALS: BP 167/92
[2020-10-16] MEDS: METOPROLOL SUCCINATE 25 MG TABLET PO SCH (18:51)
[2020-10-16] MEDS: ATORVASTATIN 40 MG TABLET PO SCH (18:51)
== END 2020-10-16 19:15 | disposition home health service, planned readmission (86) | DRG 65 ==
LOC: ED 19:35 → MS3 20:45 → OBSVTOIN 10-14 12:20
PROVIDERS: ADMIT Internal Medicine; ATTEND Nurse Practitioner Gerontology
DX: I63.9 Cerebral infarction, unspecified (principal); G81.94 Hemiplegia, unspecified affecting left nondominant side; R47.81 Slurred speech; I10 Essential (primary) hypertension; E11.65 Type 2 diabetes mellitus with hyperglycemia; E78.5 Hyperlipidemia, unspecified; T46.1X6A Underdosing of calcium-channel blockers, initial encounter; T46.4X6A Underdosing of angiotensin-converting-enzyme inhibitors, initial encounter; Z91.128 Patient's intentional underdosing of medication regimen for other reason; Z79.84 Long term (current) use of oral hypoglycemic drugs; Z20.822 Contact with and (suspected) exposure to COVID-19
CPT/HCPCS: 36415; 70450; 70496; 70498; 70551; 80048; 80053; 80061; 81003; 83036; 83690; 84443; 85025; 85610; 85730; 87631; 93005; 93306; 96374; 97110; 97161; 97166; 97530; 97535; 99285; A9270; G0378; J1815; Q9967; 0202U; 80306; 80307; 80320; 80329; 81001; 83721; 87086

== ENCOUNTER 2020-11-26 07:41 | Outpatient (CLI) | payer MEDICARE ==
[2020-11-26 11:38] LABS: BASOPHILS # (AUTO) 0.1 10^3/uL (0.0-0.1); BASOPHILS % (AUTO) 0.6 %; EOSINOPHILS # (AUTO) 0.7 10^3/uL (0.0-0.7); EOSINOPHILS % (AUTO) 6.3 %; HCT - HEMATOCRIT 43.8 % (42.0-52.0); HGB - HEMOGLOBIN 14.5 g/dL (14.0-18.0); LYMPHOCYTES # (AUTO) 1.3 10^3/uL (1.5-3.5); LYMPHOCYTES % (AUTO) 12.3 %; MEAN CORPUSCULAR HEMOGLOBIN 28.5 pg (27.0-31.0); MEAN CORPUSCULAR HGB CONC 33.1 g/dL (32.0-36.0); MEAN CORPUSCULAR VOLUME 86.1 fL (80.0-94.0); MEAN PLATELET VOLUME 11.1 fL (7.4-11.4); MONOCYTES # (AUTO) 0.6 10^3/uL (0.0-1.0); MONOCYTES % (AUTO) 5.7 %; NEUTROPHILS # (AUTO) 7.8 10^3/uL (1.5-6.6); NEUTROPHILS % (AUTO) 74.6 %; PLT - PLATELET COUNT 254 10^3/uL (130-450); RED BLOOD COUNT 5.09 10^6/uL (4.70-6.10); RED CELL DISTRIBUTION WIDTH 12.9 % (12.0-15.0); WHITE BLOOD COUNT 10.5 x10^3/uL (4.8-10.8)
[2020-11-26 12:36] LABS: ALBUMIN 4.4 g/dL (3.2-5.5); ALBUMIN/GLOBULIN RATIO 1.3 (1.0-2.2); BILIRUBIN,TOTAL 0.8 mg/dL (0.2-1.0); CALCIUM 10.1 mg/dL (8.5-10.3); CREATININE 0.9 mg/dL (0.6-1.2); POTASSIUM 3.8 mmol/L (3.5-5.0); TOTAL PROTEIN 7.9 g/dL (6.7-8.2)
[2020-11-26 19:57] LABS: ESTIMATED AVERAGE GLUCOSE 126 mg/dL (70-100)
== END 2020-11-26 23:59 | disposition home or self-care (01) ==
LOC: LAB.WCP 07:41
PROVIDERS: ATTEND Family Medicine
DX: E87.6 Hypokalemia (principal); E11.9 Type 2 diabetes mellitus without complications; I69.354 Hemiplegia and hemiparesis following cerebral infarction affecting left non-dominant side
CPT/HCPCS: 36415; 80053; 83036; 85025

== ENCOUNTER 2021-03-31 10:49 | Outpatient (CLI) | payer MEDICARE ==
[2021-03-31 18:04] LABS: BASOPHILS # (AUTO) 0.1 10^3/uL (0.0-0.1); BASOPHILS % (AUTO) 0.7 %; EOSINOPHILS # (AUTO) 0.6 10^3/uL (0.0-0.7); HCT - HEMATOCRIT 37.9 % (42.0-52.0); HGB - HEMOGLOBIN 12.4 g/dL (14.0-18.0); LYMPHOCYTES # (AUTO) 0.9 10^3/uL (1.5-3.5); LYMPHOCYTES % (AUTO) 7.3 %; MEAN CORPUSCULAR HEMOGLOBIN 29.8 pg (27.0-31.0); MEAN CORPUSCULAR HGB CONC 32.7 g/dL (32.0-36.0); MEAN CORPUSCULAR VOLUME 91.1 fL (80.0-94.0); MEAN PLATELET VOLUME 11.3 fL (7.4-11.4); MONOCYTES # (AUTO) 0.8 10^3/uL (0.0-1.0); MONOCYTES % (AUTO) 6.3 %; NEUTROPHILS # (AUTO) 9.6 10^3/uL (1.5-6.6); NEUTROPHILS % (AUTO) 80.2 %; PLT - PLATELET COUNT 219 10^3/uL (130-450); RED BLOOD COUNT 4.16 10^6/uL (4.70-6.10); RED CELL DISTRIBUTION WIDTH 13.1 % (12.0-15.0)
[2021-03-31 18:21] LABS: ALBUMIN 4.5 g/dL (3.2-5.5); ALBUMIN/GLOBULIN RATIO 1.6 (1.0-2.2); ALKALINE PHOSPHATASE 59 IU/L (42-121); ALT ALANINE AMINOTRANSFERASE 23 IU/L (10-60); AST ASPARTATE AMINOTRANSFERASE 16 IU/L (10-42); BILIRUBIN,TOTAL 0.9 mg/dL (0.2-1.0); BUN - BLOOD UREA NITROGEN 29 mg/dL (6-20); CALCIUM 9.8 mg/dL (8.5-10.3); CARBON DIOXIDE - CO2 27 mmol/L (21-32); CHLORIDE 102 mmol/L (101-111); CHOLESTEROL 110 mg/dL; CREATININE 1.2 mg/dL (0.6-1.2); GFR - MDRD 60 (>89); GLUCOSE 196 mg/dL (70-100); HDL CHOLESTEROL 37 mg/dL; LDL CHOLESTEROL,CALCULATED 58 mg/dL; LDL/HDL RATIO 1.6 (<3.6); POTASSIUM 4.9 mmol/L (3.5-5.0); SODIUM 138 mmol/L (135-145); TOTAL PROTEIN 7.4 g/dL (6.7-8.2); TRIGLYCERIDES 74 mg/dL; VLDL CHOLESTEROL 15 mg/dL
[2021-03-31 18:26] LABS: CREATININE,URINE 187.9 mg/dL; MICROALBUM/CREATININE RATIO,UR 5.9 ug/mg (<30.0); MICROALBUMIN,URINE 1.1 mg/dL (0-300.0)
[2021-03-31 20:22] LABS: ESTIMATED AVERAGE GLUCOSE 128 mg/dL (70-100); HEMOGLOBIN A1c% 6.1 % (4.27-6.07)
== END 2021-03-31 23:59 | disposition home or self-care (01) ==
LOC: LAB.WCP 10:49
PROVIDERS: ATTEND Family Medicine
DX: E11.9 Type 2 diabetes mellitus without complications (principal)
CPT/HCPCS: 36415; 80053; 80061; 82043; 82570; 83036; 83721; 85025

== ENCOUNTER 2021-07-14 16:55 | Outpatient (CLI) | payer MEDICARE ==
--- NOTE | 2021-07-14 22:44 | XRAY Report ---
PROCEDURE: Shoulder 2 View LT INDICATIONS: L SHOULDER PX TECHNIQUE: 2 views of the shoulder were acquired. COMPARISON: None. FINDINGS: Bones: No fractures or dislocations. Mild to moderate acromioclavicular joint and glenohumeral joint osteoarthritic changes are seen. No suspicious bony lesions. Visualized ribs appear intact. Soft tissues: No suspicious soft tissue calcifications. IMPRESSION: Mild to moderate left shoulder joint osteoarthritis. No fracture or dislocation. No neetu s soft tissue abnormality. Reviewed by: Naun Ramos MD on 07/14/2021 10:43 PM PST Approved by: Naun Ramos MD on 07/14/2021 10:43 PM PST Station ID: [id number]
== END 2021-07-14 23:59 | disposition home or self-care (01) ==
LOC: DI.N 16:55
PROVIDERS: ATTEND Nurse Practitioner
DX: M19.012 Primary osteoarthritis, left shoulder (principal)

== ENCOUNTER 2021-09-01 09:02 | Outpatient (CLI) | payer MEDICARE ==
[2021-09-01 11:35] LABS: BASOPHILS # (AUTO) 0.1 10^3/uL (0.0-0.1); BASOPHILS % (AUTO) 0.5 %; EOSINOPHILS # (AUTO) 0.1 10^3/uL (0.0-0.7); EOSINOPHILS % (AUTO) 1.4 %; HGB - HEMOGLOBIN 13.3 g/dL (14.0-18.0); LYMPHOCYTES % (AUTO) 9.9 %; MEAN CORPUSCULAR HEMOGLOBIN 28.9 pg (27.0-31.0); MEAN CORPUSCULAR HGB CONC 34.1 g/dL (32.0-36.0); MEAN CORPUSCULAR VOLUME 84.8 fL (80.0-94.0); MONOCYTES # (AUTO) 0.8 10^3/uL (0.0-1.0); MONOCYTES % (AUTO) 7.5 %; NEUTROPHILS # (AUTO) 8.2 10^3/uL (1.5-6.6); NEUTROPHILS % (AUTO) 80.3 %; PLT - PLATELET COUNT 280 10^3/uL (130-450); RED CELL DISTRIBUTION WIDTH 12.2 % (12.0-15.0); WHITE BLOOD COUNT 10.2 x10^3/uL (4.8-10.8)
[2021-09-01 11:50] LABS: CREATININE,URINE 242.7 mg/dL; MICROALBUMIN,URINE 1.7 mg/dL (0-300.0)
[2021-09-01 12:01] LABS: ALBUMIN 4.1 g/dL (3.2-5.5); ALBUMIN/GLOBULIN RATIO 1.3 (1.0-2.2); ALKALINE PHOSPHATASE 65 IU/L (42-121); ALT ALANINE AMINOTRANSFERASE 28 IU/L (10-60); AST ASPARTATE AMINOTRANSFERASE 22 IU/L (10-42); BILIRUBIN,TOTAL 1.2 mg/dL (0.2-1.0); BUN - BLOOD UREA NITROGEN 16 mg/dL (6-20); CALCIUM 9.6 mg/dL (8.5-10.3); CARBON DIOXIDE - CO2 30 mmol/L (21-32); CHLORIDE 99 mmol/L (101-111); CHOL/HDL RATIO 3.3 (<5.0); CHOLESTEROL 89 mg/dL; CREATININE 0.9 mg/dL (0.6-1.2); GFR - MDRD 83 (>89); GLUCOSE 197 mg/dL (70-100); HDL CHOLESTEROL 27 mg/dL; LDL CHOLESTEROL,CALCULATED 42 mg/dL; LDL/HDL RATIO 1.6 (<3.6); POTASSIUM 4.2 mmol/L (3.5-5.0); SODIUM 138 mmol/L (135-145); TOTAL PROTEIN 7.3 g/dL (6.7-8.2); TRIGLYCERIDES 99 mg/dL; VLDL CHOLESTEROL 20 mg/dL
[2021-09-01 12:17] LABS: ESTIMATED AVERAGE GLUCOSE 166 mg/dL (70-100); HEMOGLOBIN A1c% 7.4 % (4.27-6.07)
== END 2021-09-01 23:59 | disposition home or self-care (01) ==
LOC: LAB.WCP 09:02
PROVIDERS: ATTEND Family Medicine
DX: E11.9 Type 2 diabetes mellitus without complications (principal)
CPT/HCPCS: 36415; 80053; 80061; 82043; 82570; 83036; 83721; 85025

== ENCOUNTER 2021-11-28 08:00 | Outpatient (CLI) | payer MEDICARE ==
--- NOTE | 2021-11-28 17:08 | XRAY Report ---
PROCEDURE: Lumbar Spine 3 View INDICATIONS: SCIATICA, RIGHT SIDE TECHNIQUE: 3 views of the lumbar spine were acquired. COMPARISON: None. FINDINGS: Bones: 5 [id number] vertebrae are present. There is approximately 3 mm of L2-L3 retrolisthesis . There is approximately 2 mm of L3-L4 retrolisthesis. No vertebral body compression fractures. No s uspicious bony lesions. Moderate L4-L5 degenerative disc disease. Mild L1-L2, L2-L3, L3-L4 and L5-S1 degenerative disease. Mild L4-L5 and L5-S1 facet arthropathy. Soft tissues: Overlying bowel gas pattern is normal. No suspicious soft tissue calcifications. IMPRESSION: 1. Multilevel degenerative disc disease. 2. Multilevel facet arthropathy. 3. No fracture. No acute osseous lesion. If there is continued clinical concern for pathology, then M RI should be considered for further evaluation. Reviewed by: Leidy Breaux MD, PhD on 11/28/2021 5:06 PM PDT Approved by: Leidy Breaux MD, PhD on 11/28/2021 5:06 PM PDT Station ID: [id number]
== END 2021-11-28 23:59 | disposition home or self-care (01) ==
LOC: DI.N 08:00
PROVIDERS: ATTEND Physician Assistant Medical
DX: M43.16 Spondylolisthesis, lumbar region (principal); M47.816 Spondylosis without myelopathy or radiculopathy, lumbar region; M47.817 Spondylosis without myelopathy or radiculopathy, lumbosacral region; M51.36 Other intervertebral disc degeneration, lumbar region; M51.37 Other intervertebral disc degeneration, lumbosacral region

== ENCOUNTER 2022-10-14 07:55 | Outpatient (CLI) | payer MEDICARE ==
[2022-10-14 12:30] LABS: CALCIUM 9.9 mg/dL (8.5-10.3); POTASSIUM 3.8 mmol/L (3.5-5.0)
[2022-10-14 12:42] LABS: ESTIMATED AVERAGE GLUCOSE 131 mg/dL (70-100); HEMOGLOBIN A1c% 6.2 % (4.27-6.07)
== END 2022-10-14 07:56 | disposition home or self-care (01) ==
LOC: LAB.N 07:55
PROVIDERS: ATTEND Internal Medicine
DX: E11.42 Type 2 diabetes mellitus with diabetic polyneuropathy (principal); N40.1 Benign prostatic hyperplasia with lower urinary tract symptoms
CPT/HCPCS: 36415; 80048; 83036; 84153

== ENCOUNTER 2023-02-02 17:57 | Outpatient (CLI) | payer OTHER | END 2023-02-02 23:59 | disposition critical access hospital (66) | LOC: EMS 17:57 | DX: R42 Dizziness and giddiness (principal); R47.81 Slurred speech | CPT/HCPCS: A0425; A0429 ==

== ENCOUNTER 2023-02-02 18:19 | Emergency (ER) | payer MEDICARE, OTHER ==
[2023-02-02 18:44] LABS: BASOPHILS # (AUTO) 0.1 10^3/uL (0.0-0.1); BASOPHILS % (AUTO) 0.7 %; EOSINOPHILS # (AUTO) 0.2 10^3/uL (0.0-0.7); EOSINOPHILS % (AUTO) 1.8 %; HCT - HEMATOCRIT 41.2 % (42.0-52.0); HGB - HEMOGLOBIN 14.1 g/dL (14.0-18.0); LYMPHOCYTES # (AUTO) 0.7 10^3/uL (1.5-3.5); LYMPHOCYTES % (AUTO) 8.8 %; MEAN CORPUSCULAR HEMOGLOBIN 28.7 pg (27.0-31.0); MEAN CORPUSCULAR HGB CONC 34.2 g/dL (32.0-36.0); MEAN CORPUSCULAR VOLUME 83.9 fL (80.0-94.0); MEAN PLATELET VOLUME 9.9 fL (7.4-11.4); MONOCYTES # (AUTO) 0.7 10^3/uL (0.0-1.0); MONOCYTES % (AUTO) 8.2 %; NEUTROPHILS # (AUTO) 6.8 10^3/uL (1.5-6.6); NEUTROPHILS % (AUTO) 80.3 %; PLT - PLATELET COUNT 202 10^3/uL (130-450); RED BLOOD COUNT 4.91 10^6/uL (4.70-6.10); RED CELL DISTRIBUTION WIDTH 12.8 % (12.0-15.0); WHITE BLOOD COUNT 8.4 x10^3/uL (4.8-10.8)
[2023-02-02 18:57] LABS: ALBUMIN 4.1 g/dL (3.2-5.5); ALBUMIN/GLOBULIN RATIO 1.2 (1.0-2.2); ALKALINE PHOSPHATASE 65 IU/L (42-121); ALT ALANINE AMINOTRANSFERASE 26 IU/L (10-60); AST ASPARTATE AMINOTRANSFERASE 19 IU/L (10-42); BILIRUBIN,TOTAL 0.8 mg/dL (0.2-1.0); BUN - BLOOD UREA NITROGEN 31 mg/dL (6-20); CARBON DIOXIDE - CO2 27 mmol/L (21-32); CHLORIDE 102 mmol/L (101-111); CREATININE 1.3 mg/dL (0.6-1.2); ETOH - ETHANOL < 5.0 mg/dL; GFR - MDRD 54 (>89); GLUCOSE 238 mg/dL (70-100); LIPASE 41 U/L (22-51); POTASSIUM 3.3 mmol/L (3.5-5.0); SODIUM 139 mmol/L (135-145); TOTAL PROTEIN 7.5 g/dL (6.7-8.2)
[2023-02-02 19:59] LABS: BILIRUBIN,URINE NEGATIVE (NEGATIVE); GLUCOSE, URINE (UA) >=1000 mg/dL (NEGATIVE); KETONES,URINE (UA) NEGATIVE (NEGATIVE); LEUKOCYTE ESTERASE, URINE NEGATIVE (NEGATIVE); MUDS CUTOFF CONCENTRATIONS CUTOFF CONC BELOW:; NITRITE,URINE NEGATIVE (NEGATIVE); OCCULT BLOOD,URINE NEGATIVE (NEGATIVE); PROTEIN,URINE NEGATIVE (NEGATIVE); UROBILINOGEN,URINE 0.2 (NORMAL) E.U./dL (NORMAL)
[2023-02-02 20:00] LABS: CLARITY,URINE CLEAR (CLEAR)
[2023-02-02 20:03] VITALS: BP 158/69
[2023-02-02 20:10] LABS: AMPHETAMINE SCREEN,URINE NEGATIVE (NEGATIVE); BARBITURATE SCREEN,UR NEGATIVE (NEGATIVE); BENZODIAZEPINES SCREEN, URINE NEGATIVE (NEGATIVE); COCAINE SCREEN URINE NEGATIVE (NEGATIVE); METHADONE SCREEN, URINE NEGATIVE (NEGATIVE); METHAMPHETAMINES SCREEN, URINE NEGATIVE (NEGATIVE); OPIATE SCREEN, URINE NEGATIVE (NEGATIVE); OXYCODONE SCREEN, URINE NEGATIVE (NEGATIVE); PROPOXYPHENE SCREEN, URINE NEGATIVE (NEGATIVE); THC CANNABINOID SCREEN, URINE NEGATIVE (NEGATIVE); TRICYCLIC ANTIDEPRESSANT,URINE NEGATIVE (NEGATIVE)
--- NOTE | 2023-02-02 21:33 | CT Report ---
PROCEDURE: HEAD WO INDICATIONS: ataxia TECHNIQUE: Noncontrast 4.5 mm thick angled axial sections acquired from the foramen magnum to the vertex. For r adiation dose reduction, the following was used: automated exposure control, adjustment of mA and/or kV according to patient size. COMPARISON: None. FINDINGS: Image quality: Excellent. CSF spaces: There is mild cerebral volume loss with prominence of the ventricles and sulci. Basal ci sterns are patent. No extra-axial fluid collections. Brain: No intracranial hemorrhage, mass, or mass effect. Gauthier-white matter interface is preserved. T here are subcortical and periventricular white matter hypodensities consistent with mild chronic smal l vessel ischemic changes. Skull and face: Calvarium and visualized facial bones are intact, without suspicious lesions. Sinuses: Visualized sinuses and mastoids are clear. IMPRESSION: 1. No acute intracranial abnormality. Reviewed by: Tiburcio Muniz MD on 02/02/2023 9:31 PM PDT Approved by: Tiburcio Muniz MD on 02/02/2023 9:31 PM PDT Station ID: [id number]
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
== END 2023-02-02 22:28 | disposition home or self-care (01) ==
LOC: EDUNIT# → ED 18:19
DX: R53.1 Weakness (principal); I10 Essential (primary) hypertension; E11.9 Type 2 diabetes mellitus without complications; Z79.84 Long term (current) use of oral hypoglycemic drugs; Z79.899 Other long term (current) drug therapy; Z79.4 Long term (current) use of insulin
CPT/HCPCS: 36415; 80053; 80306; 80320; 81001; 81003; 83690; 84484; 85025; 87086; 93005; 99284